=== PATIENT | male | born 1955 | race Caucasian/White ===

== ENCOUNTER → 2016-09-02 | Outpatient (CLI) | payer MEDICAID ==
[2016-09-02 14:54] LABS: CHLORIDE,CL 110 mmol/L (98-110); SODIUM,NA 141 mmol/L (136-146)
== END ==
LOC: MW.LAB 14:04
PROVIDERS: ATTEND Family Medicine
DX: K70.30 Alcoholic cirrhosis of liver without ascites (principal); I10 Essential (primary) hypertension
CPT/HCPCS: 36415; 80053; 82140; 85025

== ENCOUNTER → 2016-09-16 | Outpatient (CLI) | payer MEDICAID | LOC: MW.LAB 14:11 | PROVIDERS: ATTEND Family Medicine | DX: K70.30 Alcoholic cirrhosis of liver without ascites (principal) | CPT/HCPCS: 36415; 82140 ==

== ENCOUNTER → 2016-09-30 | Outpatient (CLI) | payer MEDICAID | LOC: MW.LAB 14:02 | PROVIDERS: ATTEND Family Medicine | DX: K70.30 Alcoholic cirrhosis of liver without ascites (principal) | CPT/HCPCS: 36415; 82140 ==

== ENCOUNTER → 2016-10-14 | Outpatient (CLI) | payer MEDICAID | END | disposition home or self-care (01) | LOC: MW.LAB 14:26 | PROVIDERS: ATTEND Family Medicine | DX: K70.30 Alcoholic cirrhosis of liver without ascites (principal) | CPT/HCPCS: 36415; 82140 ==

== ENCOUNTER → 2016-10-28 | Outpatient (CLI) | payer MEDICAID | END | disposition home or self-care (01) | LOC: MW.LAB 14:12 | PROVIDERS: ATTEND Family Medicine | DX: K70.30 Alcoholic cirrhosis of liver without ascites (principal) | CPT/HCPCS: 36415; 82140 ==

== ENCOUNTER → 2016-11-25 | Outpatient (CLI) | payer MEDICAID | LOC: MW.LAB 14:26 | PROVIDERS: ATTEND Family Medicine | DX: K70.30 Alcoholic cirrhosis of liver without ascites (principal) | CPT/HCPCS: 36415; 82140 ==

== ENCOUNTER 2019-03-19 16:43 | Inpatient (IN) | payer MEDICAID, MEDICARE ==
[2019-03-19] MEDS ORDERED: Sodium Chloride 0.9% 1,000 ML IV ONE (16:46)
[2019-03-19] MEDS ORDERED: MVI, Adult with Vitamin K 10 ML, Thiamine 100 MG, Folic Acid 1 MG in Sodium Chloride 0.... IV ONE ×4 (16:49)
--- NOTE | 2019-03-19 17:04 | EDM.PDOC ---
ED HPI GENERAL MEDICAL PROBLEM - General Stated Complaint: MED CLEAR Time Seen by Provider: 03/19/19 16:50 Source of Information: Reports: Patient, Police History Limitations: Reports: No Limitations - History of Present Illness INITIAL COMMENTS - FREE TEXT/NARRATIVE: HISTORY AND PHYSICAL: History of present illness: Patient is a 64-year-old male who presents to the ER for medical screening examinationclearance. Patient was pulled over and charged with a DUI, patient himself has no complaints or concerns. law enforcement has no other concerns other then having him released for medical screening examination. There was no injury or trauma involved with him being pulled over. patient is sitting in a wheel chair hunched over and answers questions with one word replies. he appears to be intoxicated as he is slurring his speech and being uncooperative with obtaining a health history. Review of systems: As per history of present illness and below otherwise all systems reviewed and negative. Past medical history: As per history of present illness and as reviewed below otherwise noncontributory. Surgical history: As per history of present illness and as reviewed below otherwise noncontributory. Social history: See social history for further information Family history: As per history of present illness and as reviewed below otherwise noncontributory. Physical exam: General: Well-developed and well nourished 64-year-old male. Unable to assess mentation due to alcohol use. appears unkempt, incontinent of urine. vital signs have been reviewed by me. HEENT: Atraumatic, normocephalic, pupils equal and reactive bilaterally, negative for conjunctival pallor, bilateral scleral icterus, mucous membranes moist, trachea midline. No drooling or trismus noted. No meningeal signs. No hot potato voice noted. Lungs: Clear to auscultation, breath sounds equal bilaterally, chest nontender. Heart: Irregular rate and rhythm; pulse of 230's. Abdomen: Soft, nondistended, nontender. Negative for masses. Negative for costovertebral tenderness. Pelvis: Stable nontender. Skin: Jaundice. Intact, warm, dry. No lesions or rashes noted. Extremities: Atraumatic, moves all extremities per self without difficulty or deficits, negative for cords or calf pain. Neurovascular unremarkable. Neuro: Alert and arousable. Cranial nerves II through XII unremarkable. Cerebellum unremarkable. Motor and sensory unremarkable throughout. Exam nonfocal. Notes: I was able to review a note from [facility] of 2014. It appears that he had some health issues which required him to be in a half-way for rehab I am unable to get a health history from the patient or previous health records. Unsure if he takes any medications at this time. After fluids have been initiated and diltiazem was given he does appear more alert. he is now cooperative with answering questions. He states he had been admitted to [facility] due to chronic back pain which required surgery and rehabilitation. He states he is a daily drinker but only drinks one to 2 beers a day. It is noted that his skin is jaundice and he has yellow sclera. he denies any history of hepatitis or systemic health conditions. States he does not take any medications or doctor with a primary care provider. I did inform the patient was likely she'll need to be admitted for further observation, he is agreeable. Blunt force man is at bedside and was made aware of this. Patient's lab values have returned and he is legally intoxicated at 236. TSH is 6.03. Chest x-ray shows no acute findings. Repeat Diltiazem being given for pulse of 115-130's; BP stable. Dr Mendez was consulted on this patient, will come and evaluate this patient for admission. Diagnostics: CBC, CMP, UA, EKG, CXR, INR, Chest X-ray, Drug Screen Therapeutics: IV fluids, Diltiazem, Banana Bag Impression: Hypothyroidism Alcohol intoxication Atrial fibrillation with RVR Plan: Observation admission Definitive disposition and diagnosis as appropriate pending reevaluation and review of above. Bilateral Scrotum Pain Score (Numeric/FACES): 5 - Related Data Allergies Allergy/AdvReac Type Severity Reaction Status Date / Time No Known Allergies Allergy Verified 03/19/19 21:49 Home Meds: Home Meds . [Unable to Verify Home Med List] 03/19/19 [History] ED ROS GENERAL - Review of Systems Review Of Systems: ROS reveals no pertinent complaints other than HPI. ED EXAM, GENERAL - Physical Exam Exam: See Below (See dictation) Course - Vital Signs Last Recorded V/S: Last Vital Signs Temp 98.4 F 03/20/19 09:00 Pulse 70 03/20/19 09:23 Resp 20 03/20/19 10:00 BP 110/66 03/20/19 10:00 Pulse Ox 94 L 03/20/19 10:00 - Orders/Labs/Meds Orders: Active Orders 24 hr Category Date Time Status CULTURE URINE [RM] Stat Lab 03/19/19 18:59 Received Medication Orders Diltiazem HCl (Cardizem Cd) 240 mg PO DAILY [facility] Last Admin: 03/20/19 09:23 Dose: 240 mg Admin: 03/19/19 20:27 Dose: 240 mg Folic Acid (Folic Acid) 1 mg PO BEDTIME JAIME Last Admin: 03/19/19 20:28 Dose: 1 mg Sodium Chloride (Normal Saline) 1,000 mls @ 150 mls/hr IV ASDIRECTED JAIME Last Admin: 03/20/19 09:29 Dose: 150 mls/hr Infusion: 03/20/19 09:29 Dose: 150 mls/hr Admin: 03/20/19 03:04 Dose: 150 mls/hr Infusion: 03/20/19 03:00 Dose: 150 mls/hr Admin: 03/19/19 20:19 Dose: 150 mls/hr Lorazepam (Ativan) 0 mg IVPUSH Q4H PRN; Protocol PRN Reason: Withdrawal Symptoms Lorazepam (Ativan) 0 mg PO Q4H PRN; Protocol PRN Reason: Withdrawal Symptoms Pantoprazole Sodium (Protonix) 40 mg PO BEDTIME JAIME Last Admin: 03/19/19 20:28 Dose: 40 mg Thiamine HCl (Vitamin B-1) 100 mg PO BEDTIME JAIME Last Admin: 03/19/19 20:27 Dose: 100 mg Labs: Laboratory Tests 03/19/19 03/19/19 03/19/19 Range/Units 16:50 16:50 16:50 WBC 6.56 (4.0-11.0) K/uL RBC 4.13 L (4.50-5.90) M/uL Hgb 14.8 (13.0-17.0) g/dL Hct 41.2 (38.0-50.0) % MCV 99.8 H (80.0-98.0) fL MCH 35.8 H (27.0-32.0) pg MCHC 35.9 (31.0-37.0) g/dL RDW Std Deviation 64.8 H (28.0-62.0) fl RDW Coeff of Miriam 18 H (11.0-15.0) % Plt Count 84 L (150-400) K/uL Neut % (Auto) 58.0 (48.0-80.0) % Lymph % (Auto) 31.4 (16.0-40.0) % [place] % (Auto) 9.1 (0.0-15.0) % Eos % (Auto) 0.3 (0.0-7.0) % Baso % (Auto) 1.2 (0.0-1.5) % Neut # (Auto) 3.8 (1.4-5.7) K/uL Lymph # (Auto) 2.1 (0.6-2.4) K/uL [place] # (Auto) 0.6 (0.0-0.8) K/uL Eos # (Auto) 0.0 (0.0-0.7) K/uL Baso # (Auto) 0.1 (0.0-0.1) K/uL Nucleated RBC % 1.3 /100WBC Nucleated RBCs # 0 K/uL INR 1.37 Sodium 140 (136-148) mmol/L Potassium 3.5 (3.5-5.1) mmol/L Chloride 106 (98-107) mmol/L Carbon Dioxide 16.9 L (21.0-32.0) mmol/L BUN 11 (7.0-18.0) mg/dL Creatinine 1.2 (0.8-1.3) mg/dL Est Cr Clr Drug Dosing 63.37 mL/min Estimated GFR (MDRD) > 60.0 ml/min Glucose 147 H (74-106) mg/dL Calcium 9.0 (8.5-10.1) mg/dL Phosphorus (2.6-4.7) mg/dL Magnesium (1.8-2.4) mg/dL Total Bilirubin 6.1 H (0.2-1.0) mg/dL Direct Bilirubin (0.0-0.5) mg/dL Indirect Bilirubin AST 132 H (15-37) IU/L ALT 26 (14-63) IU/L Alkaline Phosphatase 135 H (46-116) U/L Troponin I (0.000-0.056) ng/mL Total Protein 10.3 H (6.4-8.2) g/dL Albumin 2.0 L (3.4-5.0) g/dL Globulin 8.3 H (2.6-4.0) g/dL Albumin/Globulin Ratio 0.2 L (0.9-1.6) Lipase 345 (73-393) U/L TSH 3rd Generation 6.03 H (0.36-3.74) uIU/mL Acetaminophen ug/mL Ethyl Alcohol 236 mg/dL 03/19/19 03/19/19 Range/Units 16:50 16:50 WBC (4.0-11.0) K/uL RBC (4.50-5.90) M/uL Hgb (13.0-17.0) g/dL Hct (38.0-50.0) % MCV (80.0-98.0) fL MCH (27.0-32.0) pg MCHC (31.0-37.0) g/dL RDW Std Deviation (28.0-62.0) fl RDW Coeff of Miriam (11.0-15.0) % Plt Count (150-400) K/uL Neut % (Auto) (48.0-80.0) % Lymph % (Auto) (16.0-40.0) % [place] % (Auto) (0.0-15.0) % Eos % (Auto) (0.0-7.0) % Baso % (Auto) (0.0-1.5) % Neut # (Auto) (1.4-5.7) K/uL Lymph # (Auto) (0.6-2.4) K/uL [place] # (Auto) (0.0-0.8) K/uL Eos # (Auto) (0.0-0.7) K/uL Baso # (Auto) (0.0-0.1) K/uL Nucleated RBC % /100WBC Nucleated RBCs # K/uL INR Sodium (136-148) mmol/L Potassium (3.5-5.1) mmol/L Chloride (98-107) mmol/L Carbon Dioxide (21.0-32.0) mmol/L BUN (7.0-18.0) mg/dL Creatinine (0.8-1.3) mg/dL Est Cr Clr Drug Dosing mL/min Estimated GFR (MDRD) ml/min Glucose (74-106) mg/dL Calcium (8.5-10.1) mg/dL Phosphorus 2.7 (2.6-4.7) mg/dL Magnesium 1.1 L (1.8-2.4) mg/dL Total Bilirubin 6.0 H (0.2-1.0) mg/dL Direct Bilirubin 3.70 H (0.0-0.5) mg/dL Indirect Bilirubin 2.30 AST (15-37) IU/L ALT (14-63) IU/L Alkaline Phosphatase (46-116) U/L Troponin I < 0.050 (0.000-0.056) ng/mL Total Protein (6.4-8.2) g/dL Albumin (3.4-5.0) g/dL Globulin (2.6-4.0) g/dL Albumin/Globulin Ratio (0.9-1.6) Lipase (73-393) U/L TSH 3rd Generation (0.36-3.74) uIU/mL Acetaminophen <2.0 ug/mL Ethyl Alcohol mg/dL Meds: Medications Generic Name Dose Route Start Last Admin Trade Name Freq PRN Reason Stop Dose Admin Diltiazem HCl 240 mg 03/19/19 19:00 03/20/19 09:23 Cardizem Cd PO 240 mg DAILY JAIME Administration Folic Acid 1 mg 03/19/19 21:00 03/19/19 20:28 Folic Acid PO 1 mg BEDTIME JAIME Administration Sodium Chloride 1,000 mls @ 150 mls/hr 03/19/19 19:00 03/20/19 09:29 Normal Saline IV 150 mls/hr ASDIRECTED JAIME Administration Lorazepam 0 mg 03/19/19 18:47 Ativan IVPUSH Q4H PRN Withdrawal Symptoms Protocol Lorazepam 0 mg 03/19/19 18:52 Ativan PO Q4H PRN Withdrawal Symptoms Protocol Pantoprazole Sodium 40 mg 03/19/19 21:00 03/19/19 20:28 Protonix PO 40 mg BEDTIME JAIME Administration Thiamine HCl 100 mg 03/19/19 21:00 03/19/19 20:27 Vitamin B-1 PO 100 mg BEDTIME JAIME Administration Discontinued Medications Generic Name Dose Route Start Last Admin Trade Name Freq PRN Reason Stop Dose Admin Diltiazem HCl 20 mg 03/19/19 17:17 03/19/19 17:30 Diltiazem IVPUSH 03/19/19 17:18 20 mg ONETIME ONE Administration Diltiazem HCl 20 mg 03/19/19 17:42 03/19/19 18:04 Diltiazem IVPUSH 03/19/19 17:43 Not Given ONETIME ONE Diltiazem HCl 10 mg 03/19/19 18:04 03/19/19 18:10 Diltiazem IVPUSH 03/19/19 18:05 10 mg ONETIME ONE Administration Sodium Chloride 1,000 mls @ 999 mls/hr 03/19/19 16:46 03/19/19 17:03 Normal Saline IV 03/19/19 17:46 999 mls/hr .Bolus ONE Administration Multivitamins/Minerals 10 ml/ 1,011.2 mls @ 999 mls/hr 03/19/19 16:49 17:12 Thiamine HCl 100 mg/ Folic IV 03/19/19 17:49 999 mls/hr Acid 1 mg/ Sodium Chloride ONETIME ONE Administration Magnesium Sulfate 4 gm/ Premix 100 mls @ 25 mls/hr 03/19/19 19:17 03/19/19 20 :23 IV 03/19/19 23:16 25 mls/hr ONETIME ONE Administration Magnesium Sulfate 2 gm/ Premix 50 mls @ 25 mls/hr 03/20/19 08:38 03/20/19 09: 16 IV 03/20/19 10:37 25 mls/hr ONETIME ONE Administration Iopamidol 50 ml 03/19/19 19:32 03/19/19 20:27 Isovue Multipack-370 (76%) IVPUSH 03/19/19 19:33 Not Given ONETIME STA Pneumococcal Polyvalent Vaccine 0.5 ml 03/20/19 11:00 03/20/19 11:06 Pneumovax 23 IM 03/20/19 11:01 0.5 ml .ONCE ONE Administration Pneumococcal Polyvalent Vaccine Confirm 03/20/19 10:59 03/20/19 11:04 Pneumovax 23 Administered 03/20/19 11:00 Not Given Dose 0.5 ml .ROUTE .STK-MED ONE Potassium Chloride 40 meq 03/20/19 08:39 03/20/19 09:22 Klor-Con M20 PO 03/20/19 08:40 40 meq ONETIME ONE Administration Potassium Chloride 40 meq 03/20/19 12:00 03/20/19 12:04 Klor-Con M20 PO 03/20/19 12:01 40 meq ONETIME ONE Administration Departure - Departure Time of Disposition: 18:00 Disposition: Admitted As Inpatient 65 Clinical Impression: Atrial fibrillation with rapid ventricular response, Alcohol abuse Hypothyroidism Qualifiers: Hypothyroidism type: unspecified Qualified Code(s): E03.9 - Hypothyroidism, unspecified - Discharge Information - My Orders Last 24 Hours: My Active Orders 03/19/19 18:59 CULTURE URINE [RM] Stat - Assessment/Plan Last 24 Hours: My Active Orders 03/19/19 18:59 CULTURE URINE [RM] Stat
[2019-03-19] MEDS ORDERED: Diltiazem 25 MG/5 ML SDV IVPUSH ONE ×3 (17:17→18:04)
[2019-03-19 17:33] LABS: BLOOD UREA NITROGEN,BUN 11 mg/dL (7.0-18.0); CARBON DIOXIDE,CO2 16.9 mmol/L (21.0-32.0); CHLORIDE,CL 106 mmol/L (98-107); GLUCOSE RANDOM 147 mg/dL (74-106); LIPASE 345 U/L (73-393); POTASSIUM,K 3.5 mmol/L (3.5-5.1); SODIUM,NA 140 mmol/L (136-148)
--- NOTE | 2019-03-19 17:40 | CR ---
Indication: Chest pain. Technique: A single AP portable view of the chest was obtained. Comparison: None Findings: The heart is normal in size. The lungs are clear. No infiltrate, pleural effusion, or pneumothorax is identified. Defibrillator pads are identified overlying the chest. Impression: No acute cardiopulmonary process Dictated by Alfreda Whitt MD @ Mar 19 2019 5:39PM Signed by Dr. Alfreda Whitt @ Mar 19 2019 5:40PM
--- NOTE | 2019-03-19 18:36 | PCM.HP.2 ---
H&P History of Present Illness - General Date of Service: 03/19/19 Admit Problem/Dx: Admission Diagnosis/Problem Admission Diagnosis/Problem Atrial fibrillation with rapid ventricular response - History of Present Illness Initial Comments - Free Text/Narative: The patient is a 64 year old male who was brought in by police for medical clearance after being arrested on suspicion of DUI. In the ER he was found to be in Afib with RVR with a HR of 236. Patient denies any fever/chills, chest pain, heart palpitations, shortness of breath, abdominal pain, nausea/vomiting, diarrhea or black/bloody stools. Patient denies hx of Afib or other cardiac issues. Patient does drink daily. He drinks 3-4 beers and 1/2 pint of whiskey. Last drink was this morning, unsure what time. Patient had been sober for 5 years because he states "my body just couldn't handle it anymore". He started drinking again daily 6-7 months ago. He denies hx of withdrawal symptoms or withdrawal seizure. He denies history of hepatitis, cirrhosis, or gallbladder disease. In the ER workup showed no white count or anemia but was thrombocytopenic with platelet level of 84, an INR within normal limits. He did have an elevated bilirubin of 6.1 and elevated AST of 132. ALT was within normal limits. Lipase was 345. TSH was elevated at 6. Alcohol level was 236. UDS and UA were pending. CXR showed no acute cardiopulmonary process. EKG showed Afib with RVR with rate of 184. In the ER he was given 2 doses of 20 mg IV diltiazem and one dose of 10 mg IV diltiazem. He was also given a banana bag and 1 L bolus of NS. - Related Data Allergies/Adverse Reactions: Allergies Allergy/AdvReac Type Severity Reaction Status Date / Time Unable to Assess Allergy Unverified 03/19/19 17:03 Home Medications: Home Meds . [Unable to Verify Home Med List] 03/19/19 [History] Past Medical History - Past Health History Medical/Surgical History: Denies Medical/Surgical History Cardiovascular History: Reports: None Respiratory History: Reports: None Gastrointestinal History: Reports: None Genitourinary History: Reports: None Musculoskeletal History: Reports: Back Pain, Chronic, Fracture Neurological History: Reports: None Psychiatric History: Reports: None Endocrine/Metabolic History: Reports: None - Infectious Disease History Infectious Disease History: Reports: None - Past Surgical History Other GI Surgeries/Procedures: splenectomy Other Neurological Surgeries/Procedures: Unable to obtain Other Musculoskeletal Surgeries/Procedures:: back surgery Social & Family History - Family History Family Medical History: Noncontributory - Tobacco Use Smoking Status *Q: Former Smoker - Alcohol Use Alcohol Use History: Yes - Recreational Drug Use Recreational Drug Use: No H&P Review of Systems - Review of Systems: Review Of Systems: See Below General: Reports: No Symptoms HEENT: Reports: No Symptoms Pulmonary: Reports: No Symptoms Cardiovascular: Reports: No Symptoms Gastrointestinal: Reports: No Symptoms Genitourinary: Reports: No Symptoms Musculoskeletal: Reports: No Symptoms Skin: Reports: No Symptoms Psychiatric: Reports: No Symptoms Neurological: Reports: No Symptoms Hematologic/Lymphatic: Reports: No Symptoms Immunologic: Reports: No Symptoms Exam - Exam Exam: See Below - Vital Signs Vital Signs: Last Vital Signs Temp 98.9 F 03/19/19 17:03 Pulse 89 03/19/19 18:10 Resp 18 03/19/19 18:10 BP 127/80 03/19/19 18:10 Pulse Ox 96 03/19/19 18:10 Weight: 83.915 kg - Exam General: Alert, Oriented, Cooperative HEENT: Conjunctiva Clear, EOMI, Mucosa Moist & [place], Posterior Pharynx Clear, Pupils Equal, Pupils Reactive Neck: Supple, Trachea Midline Lungs: Clear to Auscultation, Normal Respiratory Effort Cardiovascular: Irregular Rhythm, Tachycardia GI/Abdominal Exam: Normal Bowel Sounds, Soft, Non-Tender, Hepatomegaly. No: Guarding, Rigid, Rebound Extremities: No Pedal Edema Skin: Other (Jaundice) Neuro Extensive - Mental Status: Alert Psychiatric: Alert, Normal Affect, Normal Mood - Patient Data Lab Results Last 24 hrs: Laboratory Results - last 24 hr 03/19/19 03/19/19 03/19/19 Range/Units 16:50 16:50 16:50 WBC 6.56 (4.0-11.0) K/uL RBC 4.13 L (4.50-5.90) M/uL Hgb 14.8 (13.0-17.0) g/dL Hct 41.2 (38.0-50.0) % MCV 99.8 H (80.0-98.0) fL MCH 35.8 H (27.0-32.0) pg MCHC 35.9 (31.0-37.0) g/dL RDW Std Deviation 64.8 H (28.0-62.0) fl RDW Coeff of Miriam 18 H (11.0-15.0) % Plt Count 84 L (150-400) K/uL Neut % (Auto) 58.0 (48.0-80.0) % Lymph % (Auto) 31.4 (16.0-40.0) % [place] % (Auto) 9.1 (0.0-15.0) % Eos % (Auto) 0.3 (0.0-7.0) % Baso % (Auto) 1.2 (0.0-1.5) % Neut # (Auto) 3.8 (1.4-5.7) K/uL Lymph # (Auto) 2.1 (0.6-2.4) K/uL [place] # (Auto) 0.6 (0.0-0.8) K/uL Eos # (Auto) 0.0 (0.0-0.7) K/uL Baso # (Auto) 0.1 (0.0-0.1) K/uL Nucleated RBC % 1.3 /100WBC Nucleated RBCs # 0 K/uL INR 1.37 Sodium 140 (136-148) mmol/L Potassium 3.5 (3.5-5.1) mmol/L Chloride 106 (98-107) mmol/L Carbon Dioxide 16.9 L (21.0-32.0) mmol/L BUN 11 (7.0-18.0) mg/dL Creatinine 1.2 (0.8-1.3) mg/dL Est Cr Clr Drug Dosing 63.37 mL/min Estimated GFR (MDRD) > 60.0 ml/min Glucose 147 H (74-106) mg/dL Calcium 9.0 (8.5-10.1) mg/dL Total Bilirubin 6.1 H (0.2-1.0) mg/dL AST 132 H (15-37) IU/L ALT 26 (14-63) IU/L Alkaline Phosphatase 135 H (46-116) U/L Total Protein 10.3 H (6.4-8.2) g/dL Albumin 2.0 L (3.4-5.0) g/dL Globulin 8.3 H (2.6-4.0) g/dL Albumin/Globulin Ratio 0.2 L (0.9-1.6) Lipase 345 (73-393) U/L TSH 3rd Generation 6.03 H (0.36-3.74) uIU/mL Ethyl Alcohol 236 mg/dL Result Diagrams: 03/19/19 16:50 03/19/19 16:50 Problem List Initiated/Reviewed/Updated: Yes Orders Last 24hrs: Active Orders 24 hr Category Date Time Status Patient Status [ADT] Stat ADT 03/19/19 18:09 Active EKG Documentation Completion [RC] STAT Care 03/19/19 16:49 Active EKG Documentation Completion [RC] STAT Care 03/19/19 17:40 Active DRUG SCREEN, URINE [URCHEM] Stat Lab 03/19/19 16:48 Ordered UA RFX MELLISSA AND CULT IF INDIC [URIN] Stat Lab 03/19/19 16:48 Ordered Assessment/Plan Comment:: 1. Admit for inpatient 2. Code status- full 3. Vitals per routine 4. I/Os per routine 5. Diet- regular 6. DVT prophylaxis with scds 7. Afib with RVR- did speak with finance clerk who recommended oral Diltiazem 240 mg ER and further workup which will include CTA to rule out PE, echo, and troponins trended. Will monitor on telemetry. 8. Elevated LFTs- will obtain hepatitis panel, tylenol level, direct/indirect bilirubin, and US RUQ 9. Alcohol intoxication- CIWA/Ativan protocol, start thiamine and folic acid. Start on IVF. Monitor magnesium and phosphorus daily 10. Thrombocytopenia- will obtain Hemoccult
[2019-03-19] MEDS ORDERED: LORazepam Conc Solution 2 MG/ML 30 ML Bottle PO PRN (18:52)
[2019-03-19] MEDS ORDERED: Magnesium Sulfate/Water 4 GM in Premix Bag 1 BAG IV ONE (19:17)
[2019-03-19] MEDS ORDERED: Iopamidol 755 MG/ML 500 ML Multipack Bottle IVPUSH STA (19:32)
[2019-03-19] MEDS: Sodium Chloride 0.9% 1,000 ML IV SCH (20:19)
[2019-03-19] MEDS: Diltiazem 120 MG Cap.CD PO SCH (20:27)
[2019-03-19] MEDS: Thiamine 100 MG Tab PO SCH (20:27)
[2019-03-19] MEDS: Pantoprazole 40 MG Tab.CR PO SCH (20:28)
[2019-03-19] MEDS: Folic Acid 1 MG Tab PO SCH (20:28)
--- NOTE | 2019-03-19 20:34 | CT ---
INDICATION: New onset atrial fibrillation COMPARISON: None available TECHNIQUE: CT examination of the chest was performed with the uneventful intravenous administration of 50 cc of Isovue 370 while 1 and 3 mm thick axial sections were obtained through the pulmonary arteries. Please note that all CT scans at this facility use dose modulation, iterative reconstruction, and/or weight-based dosing when appropriate to reduce radiation dose to as low as reasonably achievable. FINDINGS: : There is no sign of pulmonary embolism, with normal enhancement and branching of the pulmonary arteries. There is an 8 millimeter nodule in the central right lung base adjacent to the hemidiaphragm on axial image 74 series 702. The appearance is nonspecific, but malignancy cannot be excluded. This can be followed using Fleischner society criteria. There is mild linear atelectasis in the posterior lung bases bilaterally. There is no sign of mediastinal or hilar mass or adenopathy. The heart and great vessels are normal in appearance. There is no sign of supraclavicular or axillary mass or adenopathy. The visualized superior liver has nodular margins consistent with cirrhosis. There is prominent serpiginous soft tissue density in the inferior mediastinum around the GE junction, consistent with prominent esophageal varices. The spleen is absent. Note is made of a splenule in the left upper quadrant lateral to the liver. There is no sign of ascites in the upper abdomen. The pancreas, kidneys, and adrenals are normal in appearance. Incidental note is made of a hemangioma in the T7 vertebral body. The osseous structures are otherwise normal in appearance for the patient`s age. IMPRESSION: No sign of pulmonary embolism. Nodular appearance of the liver suggesting cirrhosis. Prominent soft tissue fullness with serpiginous vessels in the inferior mediastinum at the GE junction consistent with prominent esophageal varices. 8 millimeter noncalcified pulmonary nodule in the right lung base. This can be followed using Fleischner society criteria. FLEISCHNER SOCIETY GUIDELINES - SOLID NODULES: SINGLE LOW RISK - nodule less than 6 mm: No routine follow-up. - nodule 6-8 mm: CT at 6-12 months, then consider CT at 18-24 months. - nodule greater than 8 mm: Consider CT at 3 months, PET/CT or tissue sampling. SINGLE HIGH RISK - nodule less than 6 mm: Optional CT at 12 months. - nodule 6-8 mm: CT at 6-12 months, then CT at 18-24 months. - nodule greater than 8 mm: Consider CT at 3 months, PET/CT or tissue sampling. MULTIPLE LOW RISK - nodule less than 6 mm: No routine follow-up. - nodule 6-8 mm: CT at 3-6 months, then consider CT at 18-24 months. - nodule greater than 8 mm: CT at 3-6 months, then consider CT at 18-24 months. MULTIPLE HIGH RISK - nodule less than 6 mm: Optional CT at 12 months. - nodule 6-8 mm: CT at 3-6 months, then at 18-24 months. - nodule greater than 8 mm: CT at 3-6 months, then at 18-24 months. Please note that all CT scans at this facility use dose modulation, iterative reconstruction, and/or weight-based dosing when appropriate to reduce radiation dose to as low as reasonably achievable. Dictated by Guerrero Mueller MD @ Mar 19 2019 8:24PM Signed by Dr. Guerrero Mueller @ Mar 19 2019 8:32PM
--- NOTE | 2019-03-19 21:21 | PN ---
THC Physician - Brief Progress [id number]/16/2019 21:13[facility] Marc Cano, KIN - ROBB (ALEXA) - DAVE PAINTINGDate of Service 03/19/2019 21:13HPI/Even ts of Note eICU Brief Admission [id number] M admitted with etoh intoxication and afib RVROn CameraResti ng appears comfortable HR 87 RR 20 Sats 93% RA BP 130/84Etoh 263AST/ALT 132/26Tbili 3.2Plat 84Recomme ndationsFluidsThiamine and folateReplete electrolytesCardizem for rate comtrolWatch for withdrawal- C IWAWill need further workup for etoh liver diseaseSCDs for dvt prophInterventions Major-Arrhythmia - evaluation and management, Delirium, psychosis, severe agitation - evaluation and managementIntermedi ate-Communication with other healthcare providers and/or family
[2019-03-20] MEDS: Sodium Chloride 0.9% 1,000 ML IV SCH ×2 (03:04→09:29)
[2019-03-20 07:11] LABS: BLOOD UREA NITROGEN,BUN 8 mg/dL (7.0-18.0); CARBON DIOXIDE,CO2 22.4 mmol/L (21.0-32.0); CHLORIDE,CL 108 mmol/L (98-107); GLUCOSE RANDOM 106 mg/dL (74-106); POTASSIUM,K 3.2 mmol/L (3.5-5.1); SODIUM,NA 140 mmol/L (136-148)
--- NOTE | 2019-03-20 07:48 | PCM.PN ---
- General Info Date of Service: 03/20/19 Subjective Update: The patient is a 64 year old male admitted for alcohol withdrawal, Afib, and elevated LFTs. Patient is still in Afib but rate controlled in the 70-80s. Patient doesn't feel any different now that his heart is slowed down. Denies chest pain, shortness of breath, abdominal pain. Reports is eating and drinking appropriately. Was placed on oxygen for desatting while sleeping into the 80s. Reports he feels like he can go home. - Review of Systems General: Reports: No Symptoms HEENT: Reports: No Symptoms Pulmonary: Reports: No Symptoms Cardiovascular: Reports: No Symptoms Gastrointestinal: Reports: No Symptoms Genitourinary: Reports: No Symptoms Musculoskeletal: Reports: No Symptoms Skin: Reports: No Symptoms Neurological: Reports: Tremors Psychiatric: Reports: No Symptoms - Patient Data Vitals - Most Recent: Last Vital Signs Temp 98.2 F 03/20/19 04:00 Pulse 83 03/19/19 20:27 Resp 14 03/20/19 07:00 BP 114/75 03/20/19 07:00 Pulse Ox 93 L 03/20/19 07:00 Weight - Most Recent: 83.869 kg I&O - Last 24 Hours: Intake & Output 03/19/19 03/20/19 03/20/19 22:59 06:59 14:59 Intake Total 3193 Output Total 1250 Balance 1943 Lab Results Last 24 Hours: Laboratory Results - last 24 hr 03/19/19 03/19/19 03/19/19 Range/Units 16:50 16:50 16:50 WBC 6.56 (4.0-11.0) K/uL RBC 4.13 L (4.50-5.90) M/uL Hgb 14.8 (13.0-17.0) g/dL Hct 41.2 (38.0-50.0) % MCV 99.8 H (80.0-98.0) fL MCH 35.8 H (27.0-32.0) pg MCHC 35.9 (31.0-37.0) g/dL RDW Std Deviation 64.8 H (28.0-62.0) fl RDW Coeff of Miriam 18 H (11.0-15.0) % Plt Count 84 L (150-400) K/uL Neut % (Auto) 58.0 (48.0-80.0) % Lymph % (Auto) 31.4 (16.0-40.0) % [place] % (Auto) 9.1 (0.0-15.0) % Eos % (Auto) 0.3 (0.0-7.0) % Baso % (Auto) 1.2 (0.0-1.5) % Neut # (Auto) 3.8 (1.4-5.7) K/uL Lymph # (Auto) 2.1 (0.6-2.4) K/uL [place] # (Auto) 0.6 (0.0-0.8) K/uL Eos # (Auto) 0.0 (0.0-0.7) K/uL Baso # (Auto) 0.1 (0.0-0.1) K/uL Add Manual Diff Neutrophils % (Manual) (48.0-80.0) % Band Neutrophils % % Lymphocytes % (Manual) (16.0-40.0) % Monocytes % (Manual) (0.0-15.0) % Basophils % (Manual) (0.0-1.5) % Nucleated RBC % 1.3 /100WBC Absolute Seg Neuts (1.4-5.7) Band Neutrophils # Lymphocytes # (Manual) (0.6-2.4) Monocytes # (Manual) (0.0-0.8) Basophils # (Manual) (0.0-0.1) Nucleated RBCs # 0 K/uL INR 1.37 Lactate (0.20-2.00) mmol/L Sodium 140 (136-148) mmol/L Potassium 3.5 (3.5-5.1) mmol/L Chloride 106 (98-107) mmol/L Carbon Dioxide 16.9 L (21.0-32.0) mmol/L BUN 11 (7.0-18.0) mg/dL Creatinine 1.2 (0.8-1.3) mg/dL Est Cr Clr Drug Dosing 63.37 mL/min Estimated GFR (MDRD) > 60.0 ml/min Glucose 147 H (74-106) mg/dL Calcium 9.0 (8.5-10.1) mg/dL Phosphorus (2.6-4.7) mg/dL Magnesium (1.8-2.4) mg/dL Total Bilirubin 6.1 H (0.2-1.0) mg/dL Direct Bilirubin (0.0-0.5) mg/dL Indirect Bilirubin AST 132 H (15-37) IU/L ALT 26 (14-63) IU/L Alkaline Phosphatase 135 H (46-116) U/L Troponin I (0.000-0.056) ng/mL Total Protein 10.3 H (6.4-8.2) g/dL Albumin 2.0 L (3.4-5.0) g/dL Globulin 8.3 H (2.6-4.0) g/dL Albumin/Globulin Ratio 0.2 L (0.9-1.6) Lipase 345 (73-393) U/L TSH 3rd Generation 6.03 H (0.36-3.74) uIU/mL Urine Color Urine Appearance Urine pH (5.0-8.0) Ur Specific [place] (1.001-1.035) Urine Protein (NEGATIVE) mg/dL Urine Glucose (UA) (NEGATIVE) mg/dL Urine Ketones (NEGATIVE) mg/dL Urine Occult Blood (NEGATIVE) Urine Nitrite (NEGATIVE) Urine Bilirubin (NEGATIVE) Urine Ictotest Urine Urobilinogen (<2.0) EU/dL Ur Leukocyte Esterase (NEGATIVE) Urine RBC (0-2/HPF) Urine WBC (0-5/HPF) Ur Epithelial Cells (NONE-FEW) Urine Bacteria (NEGATIVE) Urine Opiates Screen (NEGATIVE) Ur Oxycodone Screen (NEGATIVE) Urine Methadone Screen (NEGATIVE) Acetaminophen ug/mL Ur Barbiturates Screen (NEGATIVE) Ur Phencyclidine Scrn (NEGATIVE) Ur Amphetamine Screen (NEGATIVE) U Methamphetamines Scrn (NEGATIVE) U Benzodiazepines Scrn (NEGATIVE) U Cocaine Metab Screen (NEGATIVE) U Marijuana (THC) Screen (NEGATIVE) Ethyl Alcohol 236 mg/dL 03/19/19 03/19/19 03/19/19 Range/Units 16:50 16:50 18:59 WBC (4.0-11.0) K/uL RBC (4.50-5.90) M/uL Hgb (13.0-17.0) g/dL Hct (38.0-50.0) % MCV (80.0-98.0) fL MCH (27.0-32.0) pg MCHC (31.0-37.0) g/dL RDW Std Deviation (28.0-62.0) fl RDW Coeff of Miriam (11.0-15.0) % Plt Count (150-400) K/uL Neut % (Auto) (48.0-80.0) % Lymph % (Auto) (16.0-40.0) % [place] % (Auto) (0.0-15.0) % Eos % (Auto) (0.0-7.0) % Baso % (Auto) (0.0-1.5) % Neut # (Auto) (1.4-5.7) K/uL Lymph # (Auto) (0.6-2.4) K/uL [place] # (Auto) (0.0-0.8) K/uL Eos # (Auto) (0.0-0.7) K/uL Baso # (Auto) (0.0-0.1) K/uL Add Manual Diff Neutrophils % (Manual) (48.0-80.0) % Band Neutrophils % % Lymphocytes % (Manual) (16.0-40.0) % Monocytes % (Manual) (0.0-15.0) % Basophils % (Manual) (0.0-1.5) % Nucleated RBC % /100WBC Absolute Seg Neuts (1.4-5.7) Band Neutrophils # Lymphocytes # (Manual) (0.6-2.4) Monocytes # (Manual) (0.0-0.8) Basophils # (Manual) (0.0-0.1) Nucleated RBCs # K/uL INR Lactate (0.20-2.00) mmol/L Sodium (136-148) mmol/L Potassium (3.5-5.1) mmol/L Chloride (98-107) mmol/L Carbon Dioxide (21.0-32.0) mmol/L BUN (7.0-18.0) mg/dL Creatinine (0.8-1.3) mg/dL Est Cr Clr Drug Dosing mL/min Estimated GFR (MDRD) ml/min Glucose (74-106) mg/dL Calcium (8.5-10.1) mg/dL Phosphorus 2.7 (2.6-4.7) mg/dL Magnesium 1.1 L (1.8-2.4) mg/dL Total Bilirubin 6.0 H (0.2-1.0) mg/dL Direct Bilirubin 3.70 H (0.0-0.5) mg/dL Indirect Bilirubin 2.30 AST (15-37) IU/L ALT (14-63) IU/L Alkaline Phosphatase (46-116) U/L Troponin I < 0.050 (0.000-0.056) ng/mL Total Protein (6.4-8.2) g/dL Albumin (3.4-5.0) g/dL Globulin (2.6-4.0) g/dL Albumin/Globulin Ratio (0.9-1.6) Lipase (73-393) U/L TSH 3rd Generation (0.36-3.74) uIU/mL Urine Color YELLOW Urine Appearance CLEAR Urine pH 7.0 (5.0-8.0) Ur Specific [place] 1.010 (1.001-1.035) Urine Protein NEGATIVE (NEGATIVE) mg/dL Urine Glucose (UA) NEGATIVE (NEGATIVE) mg/dL Urine Ketones NEGATIVE (NEGATIVE) mg/dL Urine Occult Blood SMALL H (NEGATIVE) Urine Nitrite NEGATIVE (NEGATIVE) Urine Bilirubin SMALL H (NEGATIVE) Urine Ictotest NEGATIVE Urine Urobilinogen 4.0 H (<2.0) EU/dL Ur Leukocyte Esterase TRACE H (NEGATIVE) Urine RBC 1-2 (0-2/HPF) Urine WBC 1-2 (0-5/HPF) Ur Epithelial Cells RARE (NONE-FEW) Urine Bacteria RARE (NEGATIVE) Urine Opiates Screen (NEGATIVE) Ur Oxycodone Screen (NEGATIVE) Urine Methadone Screen (NEGATIVE) Acetaminophen <2.0 ug/mL Ur Barbiturates Screen (NEGATIVE) Ur Phencyclidine Scrn (NEGATIVE) Ur Amphetamine Screen (NEGATIVE) U Methamphetamines Scrn (NEGATIVE) U Benzodiazepines Scrn (NEGATIVE) U Cocaine Metab Screen (NEGATIVE) U Marijuana (THC) Screen (NEGATIVE) Ethyl Alcohol mg/dL 03/19/19 03/19/19 03/19/19 Range/Units 18:59 19:50 23:00 WBC (4.0-11.0) K/uL RBC (4.50-5.90) M/uL Hgb (13.0-17.0) g/dL Hct (38.0-50.0) % MCV (80.0-98.0) fL MCH (27.0-32.0) pg MCHC (31.0-37.0) g/dL RDW Std Deviation (28.0-62.0) fl RDW Coeff of Miriam (11.0-15.0) % Plt Count (150-400) K/uL Neut % (Auto) (48.0-80.0) % Lymph % (Auto) (16.0-40.0) % [place] % (Auto) (0.0-15.0) % Eos % (Auto) (0.0-7.0) % Baso % (Auto) (0.0-1.5) % Neut # (Auto) (1.4-5.7) K/uL Lymph # (Auto) (0.6-2.4) K/uL [place] # (Auto) (0.0-0.8) K/uL Eos # (Auto) (0.0-0.7) K/uL Baso # (Auto) (0.0-0.1) K/uL Add Manual Diff Neutrophils % (Manual) (48.0-80.0) % Band Neutrophils % % Lymphocytes % (Manual) (16.0-40.0) % Monocytes % (Manual) (0.0-15.0) % Basophils % (Manual) (0.0-1.5) % Nucleated RBC % /100WBC Absolute Seg Neuts (1.4-5.7) Band Neutrophils # Lymphocytes # (Manual) (0.6-2.4) Monocytes # (Manual) (0.0-0.8) Basophils # (Manual) (0.0-0.1) Nucleated RBCs # K/uL INR Lactate 3.2 H (0.20-2.00) mmol/L Sodium (136-148) mmol/L Potassium (3.5-5.1) mmol/L Chloride (98-107) mmol/L Carbon Dioxide (21.0-32.0) mmol/L BUN (7.0-18.0) mg/dL Creatinine (0.8-1.3) mg/dL Est Cr Clr Drug Dosing mL/min Estimated GFR (MDRD) ml/min Glucose (74-106) mg/dL Calcium (8.5-10.1) mg/dL Phosphorus (2.6-4.7) mg/dL Magnesium (1.8-2.4) mg/dL Total Bilirubin (0.2-1.0) mg/dL Direct Bilirubin (0.0-0.5) mg/dL Indirect Bilirubin AST (15-37) IU/L ALT (14-63) IU/L Alkaline Phosphatase (46-116) U/L Troponin I < 0.050 (0.000-0.056) ng/mL Total Protein (6.4-8.2) g/dL Albumin (3.4-5.0) g/dL Globulin (2.6-4.0) g/dL Albumin/Globulin Ratio (0.9-1.6) Lipase (73-393) U/L TSH 3rd Generation (0.36-3.74) uIU/mL Urine Color Urine Appearance Urine pH (5.0-8.0) Ur Specific [place] (1.001-1.035) Urine Protein (NEGATIVE) mg/dL Urine Glucose (UA) (NEGATIVE) mg/dL Urine Ketones (NEGATIVE) mg/dL Urine Occult Blood (NEGATIVE) Urine Nitrite (NEGATIVE) Urine Bilirubin (NEGATIVE) Urine Ictotest Urine Urobilinogen (<2.0) EU/dL Ur Leukocyte Esterase (NEGATIVE) Urine RBC (0-2/HPF) Urine WBC (0-5/HPF) Ur Epithelial Cells (NONE-FEW) Urine Bacteria (NEGATIVE) Urine Opiates Screen NEGATIVE (NEGATIVE) Ur Oxycodone Screen NEGATIVE (NEGATIVE) Urine Methadone Screen NEGATIVE (NEGATIVE) Acetaminophen ug/mL Ur Barbiturates Screen NEGATIVE (NEGATIVE) Ur Phencyclidine Scrn NEGATIVE (NEGATIVE) Ur Amphetamine Screen NEGATIVE (NEGATIVE) U Methamphetamines Scrn NEGATIVE (NEGATIVE) U Benzodiazepines Scrn NEGATIVE (NEGATIVE) U Cocaine Metab Screen NEGATIVE (NEGATIVE) U Marijuana (THC) Screen NEGATIVE (NEGATIVE) Ethyl Alcohol mg/dL 03/20/19 03/20/19 03/20/19 Range/Units 00:22 06:29 06:29 WBC 5.98 (4.0-11.0) K/uL RBC 3.44 L (4.50-5.90) M/uL Hgb 12.3 L (13.0-17.0) g/dL Hct 34.4 L (38.0-50.0) % MCV 100.0 H (80.0-98.0) fL MCH 35.8 H (27.0-32.0) pg MCHC 35.8 (31.0-37.0) g/dL RDW Std Deviation 65.3 H (28.0-62.0) fl RDW Coeff of Miriam 18 H (11.0-15.0) % Plt Count 59 L (150-400) K/uL Neut % (Auto) (48.0-80.0) % Lymph % (Auto) (16.0-40.0) % [place] % (Auto) (0.0-15.0) % Eos % (Auto) (0.0-7.0) % Baso % (Auto) (0.0-1.5) % Neut # (Auto) (1.4-5.7) K/uL Lymph # (Auto) (0.6-2.4) K/uL [place] # (Auto) (0.0-0.8) K/uL Eos # (Auto) (0.0-0.7) K/uL Baso # (Auto) (0.0-0.1) K/uL Add Manual Diff YES Neutrophils % (Manual) 50 (48.0-80.0) % Band Neutrophils % 1 % Lymphocytes % (Manual) 33 (16.0-40.0) % Monocytes % (Manual) 15 (0.0-15.0) % Basophils % (Manual) 1 (0.0-1.5) % Nucleated RBC % 0.0 /100WBC Absolute Seg Neuts 3.0 (1.4-5.7) Band Neutrophils # 0.1 Lymphocytes # (Manual) 2.0 (0.6-2.4) Monocytes # (Manual) 0.9 H (0.0-0.8) Basophils # (Manual) 0.1 (0.0-0.1) Nucleated RBCs # 0 K/uL INR Lactate 2.1 H (0.20-2.00) mmol/L Sodium 140 (136-148) mmol/L Potassium 3.2 L (3.5-5.1) mmol/L Chloride 108 H (98-107) mmol/L Carbon Dioxide 22.4 (21.0-32.0) mmol/L BUN 8 (7.0-18.0) mg/dL Creatinine 0.9 (0.8-1.3) mg/dL Est Cr Clr Drug Dosing 84.49 mL/min Estimated GFR (MDRD) > 60.0 ml/min Glucose 106 (74-106) mg/dL Calcium 7.6 L (8.5-10.1) mg/dL Phosphorus 2.7 (2.6-4.7) mg/dL Magnesium 1.6 L (1.8-2.4) mg/dL Total Bilirubin 5.8 H (0.2-1.0) mg/dL Direct Bilirubin (0.0-0.5) mg/dL Indirect Bilirubin AST 113 H (15-37) IU/L ALT 22 (14-63) IU/L Alkaline Phosphatase 96 (46-116) U/L Troponin I < 0.050 (0.000-0.056) ng/mL Total Protein 8.1 (6.4-8.2) g/dL Albumin 1.5 L (3.4-5.0) g/dL Globulin 6.6 H (2.6-4.0) g/dL Albumin/Globulin Ratio 0.2 L (0.9-1.6) Lipase (73-393) U/L TSH 3rd Generation (0.36-3.74) uIU/mL Urine Color Urine Appearance Urine pH (5.0-8.0) Ur Specific [place] (1.001-1.035) Urine Protein (NEGATIVE) mg/dL Urine Glucose (UA) (NEGATIVE) mg/dL Urine Ketones (NEGATIVE) mg/dL Urine Occult Blood (NEGATIVE) Urine Nitrite (NEGATIVE) Urine Bilirubin (NEGATIVE) Urine Ictotest Urine Urobilinogen (<2.0) EU/dL Ur Leukocyte Esterase (NEGATIVE) Urine RBC (0-2/HPF) Urine WBC (0-5/HPF) Ur Epithelial Cells (NONE-FEW) Urine Bacteria (NEGATIVE) Urine Opiates Screen (NEGATIVE) Ur Oxycodone Screen (NEGATIVE) Urine Methadone Screen (NEGATIVE) Acetaminophen ug/mL Ur Barbiturates Screen (NEGATIVE) Ur Phencyclidine Scrn (NEGATIVE) Ur Amphetamine Screen (NEGATIVE) U Methamphetamines Scrn (NEGATIVE) U Benzodiazepines Scrn (NEGATIVE) U Cocaine Metab Screen (NEGATIVE) U Marijuana (THC) Screen (NEGATIVE) Ethyl Alcohol mg/dL 09/17/19 Range/Units 06:29 WBC (4.0-11.0) K/uL RBC (4.50-5.90) M/uL Hgb (13.0-17.0) g/dL Hct (38.0-50.0) % MCV (80.0-98.0) fL MCH (27.0-32.0) pg MCHC (31.0-37.0) g/dL RDW Std Deviation (28.0-62.0) fl RDW Coeff of Miriam (11.0-15.0) % Plt Count (150-400) K/uL Neut % (Auto) (48.0-80.0) % Lymph % (Auto) (16.0-40.0) % [place] % (Auto) (0.0-15.0) % Eos % (Auto) (0.0-7.0) % Baso % (Auto) (0.0-1.5) % Neut # (Auto) (1.4-5.7) K/uL Lymph # (Auto) (0.6-2.4) K/uL [place] # (Auto) (0.0-0.8) K/uL Eos # (Auto) (0.0-0.7) K/uL Baso # (Auto) (0.0-0.1) K/uL Add Manual Diff Neutrophils % (Manual) (48.0-80.0) % Band Neutrophils % % Lymphocytes % (Manual) (16.0-40.0) % Monocytes % (Manual) (0.0-15.0) % Basophils % (Manual) (0.0-1.5) % Nucleated RBC % /100WBC Absolute Seg Neuts (1.4-5.7) Band Neutrophils # Lymphocytes # (Manual) (0.6-2.4) Monocytes # (Manual) (0.0-0.8) Basophils # (Manual) (0.0-0.1) Nucleated RBCs # K/uL INR Lactate 1.8 (0.20-2.00) mmol/L Sodium (136-148) mmol/L Potassium (3.5-5.1) mmol/L Chloride (98-107) mmol/L Carbon Dioxide (21.0-32.0) mmol/L BUN (7.0-18.0) mg/dL Creatinine (0.8-1.3) mg/dL Est Cr Clr Drug Dosing mL/min Estimated GFR (MDRD) ml/min Glucose (74-106) mg/dL Calcium (8.5-10.1) mg/dL Phosphorus (2.6-4.7) mg/dL Magnesium (1.8-2.4) mg/dL Total Bilirubin (0.2-1.0) mg/dL Direct Bilirubin (0.0-0.5) mg/dL Indirect Bilirubin AST (15-37) IU/L ALT (14-63) IU/L Alkaline Phosphatase (46-116) U/L Troponin I (0.000-0.056) ng/mL Total Protein (6.4-8.2) g/dL Albumin (3.4-5.0) g/dL Globulin (2.6-4.0) g/dL Albumin/Globulin Ratio (0.9-1.6) Lipase (73-393) U/L TSH 3rd Generation (0.36-3.74) uIU/mL Urine Color Urine Appearance Urine pH (5.0-8.0) Ur Specific [place] (1.001-1.035) Urine Protein (NEGATIVE) mg/dL Urine Glucose (UA) (NEGATIVE) mg/dL Urine Ketones (NEGATIVE) mg/dL Urine Occult Blood (NEGATIVE) Urine Nitrite (NEGATIVE) Urine Bilirubin (NEGATIVE) Urine Ictotest Urine Urobilinogen (<2.0) EU/dL Ur Leukocyte Esterase (NEGATIVE) Urine RBC (0-2/HPF) Urine WBC (0-5/HPF) Ur Epithelial Cells (NONE-FEW) Urine Bacteria (NEGATIVE) Urine Opiates Screen (NEGATIVE) Ur Oxycodone Screen (NEGATIVE) Urine Methadone Screen (NEGATIVE) Acetaminophen ug/mL Ur Barbiturates Screen (NEGATIVE) Ur Phencyclidine Scrn (NEGATIVE) Ur Amphetamine Screen (NEGATIVE) U Methamphetamines Scrn (NEGATIVE) U Benzodiazepines Scrn (NEGATIVE) U Cocaine Metab Screen (NEGATIVE) U Marijuana (THC) Screen (NEGATIVE) Ethyl Alcohol mg/dL Med Orders - Current: Current Medications Diltiazem HCl (Cardizem Cd) 240 mg PO DAILY JAIME Last Admin: 03/19/19 20:27 Dose: 240 mg Folic Acid (Folic Acid) 1 mg PO BEDTIME [facility] Last Admin: 03/19/19 20:28 Dose: 1 mg Sodium Chloride (Normal Saline) 1,000 mls @ 150 mls/hr IV ASDIRECTED [facility] Last Admin: 03/20/19 03:04 Dose: 150 mls/hr Lorazepam (Ativan) 0 mg IVPUSH Q4H PRN; Protocol PRN Reason: Withdrawal Symptoms Lorazepam (Ativan) 0 mg PO Q4H PRN; Protocol PRN Reason: Withdrawal Symptoms Pantoprazole Sodium (Protonix) 40 mg PO BEDTIME [facility] Last Admin: 03/19/19 20:28 Dose: 40 mg Pneumococcal Polyvalent Vaccine (Pneumovax 23) 25 mcg IM .ONCE ONE Stop: 03/20/19 10:01 Thiamine HCl (Vitamin B-1) 100 mg PO BEDTIME [facility] Last Admin: 03/19/19 20:27 Dose: 100 mg Discontinued Medications Diltiazem HCl (Diltiazem) 20 mg IVPUSH ONETIME ONE Stop: 03/19/19 17:18 Last Admin: 03/19/19 17:30 Dose: 20 mg Diltiazem HCl (Diltiazem) 20 mg IVPUSH ONETIME ONE Stop: 03/19/19 17:43 Last Admin: 03/19/19 18:04 Dose: Not Given Diltiazem HCl (Diltiazem) 10 mg IVPUSH ONETIME ONE Stop: 03/19/19 18:05 Last Admin: 03/19/19 18:10 Dose: 10 mg Sodium Chloride (Normal Saline) 1,000 mls @ 999 mls/hr IV .Bolus ONE Stop: 03/19/19 17:46 Last Admin: 03/19/19 17:03 Dose: 999 mls/hr Multivitamins/Minerals 10 ml/Thiamine HCl 100 mg/ Folic Acid 1 mg/ Sodium Chloride 1,011.2 mls @ 999 mls/hr IV ONETIME ONE Stop: 03/19/19 17:49 Last Admin: 03/19/19 17:12 Dose: 999 mls/hr Magnesium Sulfate 4 gm/ Premix 100 mls @ 25 mls/hr IV ONETIME ONE Stop: 03/19/19 23:16 Last Admin: 03/19/19 20:23 Dose: 25 mls/hr Iopamidol (Isovue Multipack-370 (76%)) 50 ml IVPUSH ONETIME STA Stop: 03/19/19 19:33 Last Admin: 03/19/19 20:27 Dose: Not Given - Exam General: Alert, Cooperative Lungs: Clear to Auscultation, Normal Respiratory Effort Cardiovascular: Regular Rate, Regular Rhythm GI/Abdominal Exam: Normal Bowel Sounds, Soft, Non-Tender (Male) Exam: Other (scrotal lesions-possible ulcers) Extremities: No Pedal Edema Skin: Warm, Dry Psy/Mental Status: Withdrawal Symptoms (tremor) - Problem List Review Problem List Initiated/Reviewed/Updated: Yes - My Orders Last 24 Hours: My Active Orders 03/19/19 18:47 CIWAA Assessment [RC] Q4H Hemoccult [Fecal Occult Blood Collection] [RC] ASDIRECTED Intake and Output [RC] Q12H Vital Signs [RC] Q1H Abdomen Ltd [US] Stat Echo Comp wo Cont [US] Stat LORazepam [Ativan] See Protocol IVPUSH Q4H PRN Sequential Compression Device [OM.PC] Stat Resuscitation Status Stat 03/19/19 18:48 Antiembolic Devices [RC] Q12H 03/19/19 18:52 LORazepam [Ativan] See Protocol PO Q4H PRN 03/19/19 19:00 Diltiazem [Cardizem CD] 240 mg PO DAILY Sodium Chloride 0.9% [Normal Saline] 1,000 ml IV ASDIRECTED 03/19/19 19:50 HEPATITIS PANEL (4) [REF] Routine 03/19/19 21:00 Folic Acid 1 mg PO BEDTIME Pantoprazole [ProTONIX] 40 mg PO BEDTIME Thiamine [Vitamin B-1] 100 mg PO BEDTIME 03/20/19 Breakfast Regular Diet [DIET] 03/21/19 05:11 CBC WITH AUTO DIFF [HEME] AM CMP [COMPREHENSIVE METABOLIC PN,CMP] [CHEM] AM MAGNESIUM [CHEM] AM PHOSPHORUS [CHEM] AM 03/22/19 05:11 CBC WITH AUTO DIFF [HEME] AM CMP [COMPREHENSIVE METABOLIC PN,CMP] [CHEM] AM MAGNESIUM [CHEM] AM PHOSPHORUS [CHEM] AM 03/23/19 05:11 CBC WITH AUTO DIFF [HEME] AM CMP [COMPREHENSIVE METABOLIC PN,CMP] [CHEM] AM MAGNESIUM [CHEM] AM PHOSPHORUS [CHEM] AM - Plan Plan:: 7. Afib with RVR- started on cardizem 240 ER, still in Afib but rate controlled in the 70-80s, no anticoagulation because patient is thrombocytopenic. CTA was completed to rule out PE. No PE but did show nodular liver consistent with cirrhosis, esophageal varices, and lung nodule. Troponins were trended and negative x 3. Echo pending. Continue to monitor on telemetry 2. Elevated LFTs- improving. Hep panel and RUQ US pending, negative tylenol level, continue to monitor 3. Alcohol intoxication with impending withdrawal- CIWA/Ativan protocol, continue thiamine and folic acid. Last CIWAs were , no ativan given. Continue IVF at 150. Monitor magnesium and phosphorus daily. 4. Hypomagnesemia- improving, give another 2 grams today, recheck in AM 5. Hypokalemia- replace with 40 mEq x 2, recheck in Am 6. Thrombocytopenia- dropped from 84 to 59, continue to monitor 7. Lung nodule- 8mm on right- follow up with repeat CT scan in 6-12 months. 8. Evidence of esophageal varices and liver cirrhosis on imaging- will need to follow with GI as outpatient 9. Hypothyroidism- repeat TSH as outpatient and start medication if deemed appropriate by PCP 10. Scrotal lesions- keep area dry and use barrier cream
[2019-03-20] MEDS ORDERED: Magnesium Sulfate/Water 2 GM in Premix Bag 1 BAG IV ONE (08:38)
[2019-03-20] MEDS ORDERED: Potassium Chloride 20 MEQ Tab.ER PO ONE ×2 (08:39→12:00)
[2019-03-20] MEDS: Diltiazem 120 MG Cap.CD PO SCH (09:23)
[2019-03-20] MEDS ORDERED: Pneumococcal 23-Valent Conjugate Vaccine 0.5 ML Syringe IM ONE (10:00)
[2019-03-20] MEDS ORDERED: Pneumococcal Polyvalent-23 Vaccine 0.5 ML SDV ONE (10:59)
[2019-03-20] MEDS ORDERED: Pneumococcal Polyvalent-23 Vaccine 0.5 ML SDV IM ONE (11:00)
--- NOTE | 2019-03-20 11:27 | US ---
Limited abdominal ultrasound: Multiple real-time images of the right upper abdomen were obtained. Several gallstones are seen within the gallbladder neck. No gallbladder wall thickening or biliary duct dilatation is seen. Right kidney shows no hydronephrosis or mass and has a length of 13.1 cm. Solid mass is noted within the left lobe of the liver measuring 5.1 cm in size. Slightly prominent vessels are seen near the pancreatic head and is uncertain as to etiology. Impression: 1. Mass within the left lobe of the liver. 2. Questionable prominent vessels near the pancreatic head. 3. Several gallstones within the gallbladder neck. 4. Contrast enhanced CT study of the abdomen is recommended to further evaluate. Diagnostic code #9 MTDD
[2019-03-20] MEDS ORDERED: Iopamidol 755 MG/ML 500 ML Multipack Bottle IVPUSH STA (14:32)
--- NOTE | 2019-03-20 15:26 | CT ---
Three phase CT study of the liver/upper abdomen Technique: Noncontrast imaging was obtained from above the dome of the diaphragm inferiorly to the pubic symphysis. Arterial phase imaging then obtained after contrast administration from above the dome of the diaphragm inferiorly through the liver. Venous phase imaging then obtained during the nephrogram stage of the kidneys from above the dome of the diaphragm inferiorly through the pubic symphysis. Six-minute delayed images were also obtained from above the dome of the diaphragm inferiorly through the kidneys. Findings: Numerous varicosities are seen within the posterior mediastinum and posterior to the heart. Large varicosities are seen within the upper abdomen correlating to the vessels on previous ultrasound. Normal spleen is not seen. There is a soft tissue density noted within the left upper abdomen measuring 2.5 cm which is felt compatible with residual splenic tissue. Liver shows cirrhotic change with irregular contour and irregular contrast enhancement. There is a mass being seen within the left lobe of the liver which is fairly isodense to the liver measuring about 5.0 x 4.8 cm. This correlates to the ultrasound finding and given that the liver is cirrhotic this is highly suspicious for hepatoma. Several small low density findings are seen within the kidneys which are too small to characterize by Hounsfield unit measurements but most likely represent minimal cysts. Kidneys otherwise are unremarkable. Adrenal glands are unremarkable. Pancreas is within normal limits. Aorta shows diffuse atherosclerotic calcification which continues into the iliac vessels. No retroperitoneal adenopathy is seen. Prostate gland is mildly enlarged. Bladder is slightly thick-walled most likely representing change from mild bladder outlet obstruction. Focal increased stool is noted within the rectum. Minimal fluid is seen within the left abdomen. No other findings of ascites are seen. Calcified gallstones seen within the gallbladder. Bone window settings were reviewed which shows previous surgery at L4, L5 and S1. Scoliosis is noted within the spine. Impression: 1. Liver is cirrhotic. Prominent varicosities are seen within the posterior chest as well as within the upper abdomen. 2. Left lobe liver mass correlating to ultrasound finding. Given that the liver is cirrhotic this finding is highly suspicious for hepatoma. 3. Calcified gallstones. Minimal ascites is seen. 4. Focal increased stool within the rectum. 5. Other findings which are felt to be nonacute and incidental as described above. Diagnostic code #9 MTDD
--- NOTE | 2019-03-20 17:55 | PN ---
THC Physician - Brief Progress [id number]/17/2019 17:53[facility] [place] - MWN (SILVI[facility]) - LAURAN DAVE NAIRDate of Service 03/20/2019 17:53HPI/Even ts of Note [facility] Marc 02 Aron Oliveira Progress NoteNote written for 03/20/2019 AM, delayed due to EHR quantitative manager downtime.AgeGender admitted for afib RVR and EtOH withdrawal. History obtained pr imarily from review of EMR.Camera exam: Laying in bed. Vitals: reviewedLabs: reviewedRadiology: revie wedMeds: reviewedeICU Impression and Recommendations:Atrial Fibrillation, rate controlledWill defer a nticoagulation to primary serviceRecommend goal heart rate <110bpmAlcohol WithdrawalAlcohol withdrawa l protocol per institutional policy, including administration of PRN benzodiazepinesContinued telemet ry monitoringThiamine supplementation, 100mg dailyFolic acid, 400mcg dailyB6 (pyridoxine) supplementa tion, 2mg dailyThrombocytopenia work up per primary serviceDVT and GI prophylaxis per primary service , we are available to assist if desired.We are available to assist in further clarification, or imple mentation of any of the above recommendations if desired by primary service.Thank you for allowing us to participate in the care of this patient.The above note transcribed via dictation software. Please excuse any errors.Interventions Major-Arrhythmia - evaluation and management
[2019-03-20] MEDS: Folic Acid 1 MG Tab PO SCH (22:20)
[2019-03-20] MEDS: Thiamine 100 MG Tab PO SCH (22:20)
[2019-03-20] MEDS: Pantoprazole 40 MG Tab.CR PO SCH (22:20)
[2019-03-21] MEDS: Sodium Chloride 0.9% 1,000 ML IV SCH ×2 (01:25→15:19)
[2019-03-21] MEDS: LORazepam 2 MG/ML SDV IVPUSH PRN ×3 (03:53→17:51)
[2019-03-21 07:09] LABS: BLOOD UREA NITROGEN,BUN 8 mg/dL (7.0-18.0); CARBON DIOXIDE,CO2 23.1 mmol/L (21.0-32.0); CHLORIDE,CL 106 mmol/L (98-107); GLUCOSE RANDOM 118 mg/dL (74-106); POTASSIUM,K 3.5 mmol/L (3.5-5.1); SODIUM,NA 139 mmol/L (136-148)
--- NOTE | 2019-03-21 07:29 | PCM.PN ---
- General Info Date of Service: 03/21/19 Subjective Update: Patient reports feeling fine and requesting discharge, denies chest pain, shortness of breath, or abdominal pain. Still in Afib but rate controlled, HR 60-70s on tele. Last CIWA was 9 and he received Ativan. Yesterday, imaging showed liver mass, patient seemed to take the news well. - Review of Systems General: Reports: No Symptoms HEENT: Reports: No Symptoms Pulmonary: Reports: No Symptoms Cardiovascular: Reports: No Symptoms Gastrointestinal: Reports: No Symptoms Genitourinary: Reports: No Symptoms Musculoskeletal: Reports: No Symptoms Skin: Reports: No Symptoms Neurological: Reports: No Symptoms Psychiatric: Reports: No Symptoms - Patient Data Vitals - Most Recent: Last Vital Signs Temp 97.9 F 03/21/19 04:00 Pulse 76 03/21/19 06:00 Resp 21 H 03/21/19 06:00 BP 110/62 03/21/19 06:00 Pulse Ox 94 L 03/21/19 06:00 Weight - Most Recent: 83.869 kg I&O - Last 24 Hours: Intake & Output 03/20/19 03/21/19 03/21/19 22:59 06:59 14:59 Intake Total 300 2205 Output Total 200 150 Balance 100 2055 Lab Results Last 24 Hours: Laboratory Results - last 24 hr 03/20/19 03/20/19 03/21/19 Range/Units 06:29 06:29 06:37 WBC 5.98 6.37 (4.0-11.0) K/uL RBC 3.44 L 3.43 L (4.50-5.90) M/uL Hgb 12.3 L 12.3 L (13.0-17.0) g/dL Hct 34.4 L 34.9 L (38.0-50.0) % MCV 100.0 H 101.7 H (80.0-98.0) fL MCH 35.8 H 35.9 H (27.0-32.0) pg MCHC 35.8 35.2 (31.0-37.0) g/dL RDW Std Deviation 65.3 H 67.3 H (28.0-62.0) fl RDW Coeff of Miriam 18 H 18 H (11.0-15.0) % Plt Count 59 L 64 L (150-400) K/uL MPV 13.70 H (7.40-12.00) fL Neut % (Auto) 61.7 (48.0-80.0) % Lymph % (Auto) 24.8 (16.0-40.0) % [place] % (Auto) 12.4 (0.0-15.0) % Eos % (Auto) 0.3 (0.0-7.0) % Baso % (Auto) 0.8 (0.0-1.5) % Neut # (Auto) 3.9 (1.4-5.7) K/uL Lymph # (Auto) 1.6 (0.6-2.4) K/uL [place] # (Auto) 0.8 (0.0-0.8) K/uL Eos # (Auto) 0.0 (0.0-0.7) K/uL Baso # (Auto) 0.1 (0.0-0.1) K/uL Add Manual Diff YES Neutrophils % (Manual) 50 (48.0-80.0) % Band Neutrophils % 1 % Lymphocytes % (Manual) 33 (16.0-40.0) % Monocytes % (Manual) 15 (0.0-15.0) % Basophils % (Manual) 1 (0.0-1.5) % Nucleated RBC % 0.0 0.3 /100WBC Absolute Seg Neuts 3.0 (1.4-5.7) Band Neutrophils # 0.1 Lymphocytes # (Manual) 2.0 (0.6-2.4) Monocytes # (Manual) 0.9 H (0.0-0.8) Basophils # (Manual) 0.1 (0.0-0.1) Nucleated RBCs # 0 0 K/uL Sodium 140 (136-148) mmol/L Potassium 3.2 L (3.5-5.1) mmol/L Chloride 108 H (98-107) mmol/L Carbon Dioxide 22.4 (21.0-32.0) mmol/L BUN 8 (7.0-18.0) mg/dL Creatinine 0.9 (0.8-1.3) mg/dL Est Cr Clr Drug Dosing 84.49 mL/min Estimated GFR (MDRD) > 60.0 ml/min Glucose 106 (74-106) mg/dL Calcium 7.6 L (8.5-10.1) mg/dL Phosphorus 2.7 (2.6-4.7) mg/dL Magnesium 1.6 L (1.8-2.4) mg/dL Total Bilirubin 5.8 H (0.2-1.0) mg/dL AST 113 H (15-37) IU/L ALT 22 (14-63) IU/L Alkaline Phosphatase 96 (46-116) U/L Troponin I < 0.050 (0.000-0.056) ng/mL Total Protein 8.1 (6.4-8.2) g/dL Albumin 1.5 L (3.4-5.0) g/dL Globulin 6.6 H (2.6-4.0) g/dL Albumin/Globulin Ratio 0.2 L (0.9-1.6) Med Orders - Current: Current Medications Diltiazem HCl (Cardizem Cd) 240 mg PO DAILY [facility] Last Admin: 03/20/19 09:23 Dose: 240 mg Folic Acid (Folic Acid) 1 mg PO BEDTIME [facility] Last Admin: 03/20/19 22:20 Dose: 1 mg Sodium Chloride (Normal Saline) 1,000 mls @ 150 mls/hr IV ASDIRECTED [facility] Last Admin: 03/21/19 01:25 Dose: 150 mls/hr Lorazepam (Ativan) 0 mg IVPUSH Q4H PRN; Protocol PRN Reason: Withdrawal Symptoms Last Admin: 03/21/19 03:53 Dose: 1 mg Lorazepam (Ativan) 0 mg PO Q4H PRN; Protocol PRN Reason: Withdrawal Symptoms Pantoprazole Sodium (Protonix) 40 mg PO BEDTIME [facility] Last Admin: 03/20/19 22:20 Dose: 40 mg Thiamine HCl (Vitamin B-1) 100 mg PO BEDTIME [facility] Last Admin: 03/20/19 22:20 Dose: 100 mg Discontinued Medications Diltiazem HCl (Diltiazem) 20 mg IVPUSH ONETIME ONE Stop: 03/19/19 17:18 Last Admin: 03/19/19 17:30 Dose: 20 mg Diltiazem HCl (Diltiazem) 20 mg IVPUSH ONETIME ONE Stop: 03/19/19 17:43 Last Admin: 03/19/19 18:04 Dose: Not Given Diltiazem HCl (Diltiazem) 10 mg IVPUSH ONETIME ONE Stop: 03/19/19 18:05 Last Admin: 03/19/19 18:10 Dose: 10 mg Sodium Chloride (Normal Saline) 1,000 mls @ 999 mls/hr IV .Bolus ONE Stop: 03/19/19 17:46 Last Admin: 03/19/19 17:03 Dose: 999 mls/hr Multivitamins/Minerals 10 ml/Thiamine HCl 100 mg/ Folic Acid 1 mg/ Sodium Chloride 1,011.2 mls @ 999 mls/hr IV ONETIME ONE Stop: 03/19/19 17:49 Last Admin: 03/19/19 17:12 Dose: 999 mls/hr Magnesium Sulfate 4 gm/ Premix 100 mls @ 25 mls/hr IV ONETIME ONE Stop: 03/19/19 23:16 Last Admin: 03/19/19 20:23 Dose: 25 mls/hr Magnesium Sulfate 2 gm/ Premix 50 mls @ 25 mls/hr IV ONETIME ONE Stop: 03/20/19 10:37 Last Admin: 03/20/19 09:16 Dose: 25 mls/hr Iopamidol (Isovue Multipack-370 (76%)) 50 ml IVPUSH ONETIME STA Stop: 03/19/19 19:33 Last Admin: 03/19/19 20:27 Dose: Not Given Iopamidol (Isovue Multipack-370 (76%)) 100 ml IVPUSH ONETIME STA Stop: 03/20/19 14:33 Last Admin: 03/20/19 14:43 Dose: 100 ml Pneumococcal Polyvalent Vaccine (Pneumovax 23) 0.5 ml IM .ONCE ONE Stop: 03/20/19 11:01 Last Admin: 03/20/19 11:06 Dose: 0.5 ml Pneumococcal Polyvalent Vaccine (Pneumovax 23) Confirm Administered Dose 0.5 ml .ROUTE .STK-MED ONE Stop: 03/20/19 11:00 Last Admin: 03/20/19 11:04 Dose: Not Given Potassium Chloride (Klor-Con M20) 40 meq PO ONETIME ONE Stop: 03/20/19 08:40 Last Admin: 03/20/19 09:22 Dose: 40 meq Potassium Chloride (Klor-Con M20) 40 meq PO ONETIME ONE Stop: 03/20/19 12:01 Last Admin: 03/20/19 12:04 Dose: 40 meq - Exam Quality Assessment: Supplemental Oxygen General: Alert, Oriented, Cooperative Lungs: Clear to Auscultation, Normal Respiratory Effort Cardiovascular: Regular Rate, Irregular Rhythm GI/Abdominal Exam: Normal Bowel Sounds, Soft, Non-Tender, Hepatomegaly. No: Guarding, Rigid, Rebound Extremities: No Pedal Edema Skin: Warm, Dry, Intact Neurological: No New Focal Deficit Psy/Mental Status: Alert, Normal Affect, Normal Mood, Withdrawal Symptoms ( tremors) - Problem List Review Problem List Initiated/Reviewed/Updated: Yes - My Orders Last 24 Hours: My Active Orders 03/20/19 18:47 Echo Comp wo Cont [US] Stat 03/20/19 Breakfast Regular Diet [DIET] 03/21/19 06:37 CMP [COMPREHENSIVE METABOLIC PN,CMP] [CHEM] AM MAGNESIUM [CHEM] AM PHOSPHORUS [CHEM] AM 03/22/19 05:11 CBC WITH AUTO DIFF [HEME] AM CMP [COMPREHENSIVE METABOLIC PN,CMP] [CHEM] AM MAGNESIUM [CHEM] AM PHOSPHORUS [CHEM] AM 03/23/19 05:11 CBC WITH AUTO DIFF [HEME] AM CMP [COMPREHENSIVE METABOLIC PN,CMP] [CHEM] AM MAGNESIUM [CHEM] AM PHOSPHORUS [CHEM] AM - Plan Plan:: 7. Afib with RVR- continue on cardizem 240 ER, still in Afib but rate controlled in the 60-70s, no anticoagulation because patient is thrombocytopenic. CTA chest was completed to rule out PE. No PE but did show nodular liver consistent with cirrhosis, esophageal varices, and lung nodule. Troponins were trended and negative x 3. Echo pending. Continue to monitor on telemetry 2. Elevated LFTs-Bilirubin rising from 5.8 to 7.4, will get MRCP today. Hep panel pending. RUQ US found a mass on the left side of his liver and gallstones with no wall thickness or common bile duct dilation. Radiology recommended follow up with CT. CTA abdomen was performed and found liver cirrhosis, 5x4.8 cm hepatoma, and prominent varicosities. We have a call in to radiology to see if they can provide us with a more specific read in regards to the mass. Will discuss with GI once MRCP is back. 3. Alcohol intoxication with impending withdrawal- CIWA/Ativan protocol, continue thiamine and folic acid. Last CIWAs were 01/09, received a dose of Ativan early this morning. Continue IVF at 150. Monitor magnesium and phosphorus daily. 4. Hypomagnesemia-replace with 4 g IV, recheck in AM 5. Hypokalemia- resolved 6. Hypophosphatemia- will replace with 250 mg qid, recheck in AM 7. Thrombocytopenia- stable from 59-64 8. Lung nodule- 8mm on right- follow up with repeat CT scan in 6-12 months. 9. Evidence of esophageal varices and liver cirrhosis on imaging- will need to follow with GI as outpatient 10. Hypothyroidism- repeat TSH as outpatient and start medication if deemed appropriate by PCP 11. Scrotal lesions- keep area dry and use barrier cream
[2019-03-21] MEDS ORDERED: Magnesium Sulfate/Water 4 GM in Premix Bag 1 BAG IV ONE (08:02)
--- NOTE | 2019-03-21 08:25 | PN ---
THC Physician - Brief Progress [id number]/18/2019 08:15[facility] Marc Cano, [place] - LAURAN (SILVIAN) - MWN DAVE NAIRDate of Service 03/21/2019 08:15HPI/Even ts of Note eICU Progress [id number] admitted for afib RVR and EtOH withdrawal. History obtained primaril y from review of EMR.Camera exam: Laying in bed.Vitals: reviewedLabs: reviewedRadiology: reviewedMeds : reviewedeICU Impression and Recommendations:Atrial Fibrillation, rate controlledWill defer anticoag ulation to primary serviceRecommend goal heart rate <110bpmContinued telemetry monitoringAlcohol With drawalAlcohol withdrawal protocol per institutional policy, including administration of PRN benzodiaz epinesThiamine supplementation, 100mg dailyFolic acid, 400mcg dailyB6 (pyridoxine) supplementation, 2 mg dailyThrombocytopenia likely secondary to liver cirrhosisLiver cirrhosisLiver mass with concern fo r possible hepatomaWill defer to primary service regarding work up of liver mass, we are available to assist if desiredDVT and GI prophylaxis per primary service, we are available to assist if desired.W e are available to assist in further clarification, or implementation of any of the above recommendat ions if desired by primary service.Thank you for allowing us to participate in the care of this patie nt.The above note transcribed via dictation software. Please excuse any errors.Interventions Major-Ar rhythmia - evaluation and management 08:2 4
[2019-03-21] MEDS: Diltiazem 120 MG Cap.CD PO SCH (08:44)
[2019-03-21] MEDS ORDERED: Nystatin Crm 30 GM Tube TOP PRN (11:01)
[2019-03-21] MEDS: Phosphorus #1 250 MG Tab PO SCH ×2 (11:57→17:58)
[2019-03-21] MEDS ORDERED: Gadobenate Dimeglumine 529 MG/ML 20 ML SDV IVPUSH STA (16:10)
--- NOTE | 2019-03-21 19:21 | MR ---
Indication: Elevated bilirubin. Technique: MR I of the abdomen without intravenous gadolinium, MRCP. Three plane localizer, coronal T2 weighted, high-resolution, heavily T2 weighted 2D/3D MRCP images, axial T1 weighted in and out of phase, axial T2 weighted with fat suppression. No intravenous gadolinium administered. Comparison: CT of the abdomen pelvis, 03/20/2019. Findings: Several of the pulse sequences are limited by motion artifact, and are considered nondiagnostic. There is no common bile duct stone or mass. Common bile duct measures up to 7 millimeters in dimension. Gallstones with pericholecystic fluid. Ascites. Nodular surface of the liver, with a cirrhotic liver morphology. MRI with gadolinium is suggested if there is concern regarding hepatocellular carcinoma. Marked esophageal varices present in the posterior mediastinum. Mild perinephric fat stranding. Small renal cysts. No solid renal mass. Susceptibility artifact related to fusion in the lumbar spine. Impression: 1. Limited quality exam, secondary to motion artifact. 2. No common bile duct stone or mass. 3. Cholelithiasis with mild pericholecystic fluid. Note that pericholecystic fluid could be secondary to entities other than cholecystitis, such as liver parenchymal disease. 4. Cirrhotic liver morphology with evidence of portal hypertension/esophageal varices. 5. This report is in agreement with the preliminary report submitted by Teler[facility]iology, 03/21/2019, 1921 hours. Dictated by Harrison Monreal MD @ Mar 22 2019 12:44PM Signed by Dr. Harrison Monreal @ Mar 22 2019 12:54PM
[2019-03-22] MEDS: Thiamine 100 MG Tab PO SCH ×2 (00:49→22:00)
[2019-03-22] MEDS: Folic Acid 1 MG Tab PO SCH ×2 (00:49→22:00)
[2019-03-22] MEDS: Pantoprazole 40 MG Tab.CR PO SCH ×2 (00:49→22:00)
[2019-03-22] MEDS: LORazepam 2 MG/ML SDV IVPUSH PRN ×2 (00:58→14:39)
[2019-03-22] MEDS: Phosphorus #1 250 MG Tab PO SCH ×4 (00:59→18:22)
[2019-03-22] MEDS: Sodium Chloride 0.9% 1,000 ML IV SCH ×2 (02:28→19:06)
[2019-03-22 06:52] LABS: BLOOD UREA NITROGEN,BUN 8 mg/dL (7.0-18.0); CARBON DIOXIDE,CO2 21.7 mmol/L (21.0-32.0); CHLORIDE,CL 107 mmol/L (98-107); GLUCOSE RANDOM 116 mg/dL (74-106); POTASSIUM,K 3.6 mmol/L (3.5-5.1); SODIUM,NA 140 mmol/L (136-148)
[2019-03-22] MEDS ORDERED: Magnesium Sulfate/Water 4 GM in Premix Bag 1 BAG IV ONE (07:36)
--- NOTE | 2019-03-22 07:50 | PCM.PN ---
- General Info Date of Service: 03/22/19 Subjective Update: Patient reports he feels fine and is ready to leave. CIWA scores have been 16, 14,15 and he has been receiving Ativan, patient declines withdrawal symptoms. Attempted MRCP yesterday but patient was unable to hold still so study is limited. He has been in Afib but the rate is creeping up to 90s-100s. Patient denies chest pain, shortness of breath, abdominal pain, nausea/vomiting. Reviewed records from his stay in [place] in 2013. 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 While there his bilirubin was elevated as it has been here. - Review of Systems General: Reports: No Symptoms HEENT: Reports: No Symptoms Pulmonary: Reports: No Symptoms Cardiovascular: Reports: No Symptoms Gastrointestinal: Reports: No Symptoms Genitourinary: Reports: No Symptoms Musculoskeletal: Reports: No Symptoms Skin: Reports: No Symptoms Neurological: Reports: No Symptoms Psychiatric: Reports: No Symptoms - Patient Data Vitals - Most Recent: Last Vital Signs Temp 99.5 F 03/22/19 04:00 Pulse 100 03/22/19 04:00 Resp 20 03/22/19 04:00 BP 142/67 H 03/22/19 04:00 Pulse Ox 94 L 03/22/19 04:00 Weight - Most Recent: 83.869 kg I&O - Last 24 Hours: Intake & Output 03/21/19 03/22/19 03/22/19 22:59 06:59 14:59 Intake Total 2280 950 Output Total 1750 Balance 530 950 Lab Results Last 24 Hours: Laboratory Results - last 24 hr 03/21/19 03/22/19 03/22/19 Range/Units 09:35 06:19 06:19 WBC 7.28 (4.0-11.0) K/uL RBC 3.68 L (4.50-5.90) M/uL Hgb 13.3 (13.0-17.0) g/dL Hct 37.3 L (38.0-50.0) % MCV 101.4 H (80.0-98.0) fL MCH 36.1 H (27.0-32.0) pg MCHC 35.7 (31.0-37.0) g/dL RDW Std Deviation 66.7 H (28.0-62.0) fl RDW Coeff of Miriam 18 H (11.0-15.0) % Plt Count 71 L (150-400) K/uL Neut % (Auto) 69.6 (48.0-80.0) % Lymph % (Auto) 16.3 (16.0-40.0) % [place] % (Auto) 12.8 (0.0-15.0) % Eos % (Auto) 0.5 (0.0-7.0) % Baso % (Auto) 0.8 (0.0-1.5) % Neut # (Auto) 5.1 (1.4-5.7) K/uL Lymph # (Auto) 1.2 (0.6-2.4) K/uL [place] # (Auto) 0.9 H (0.0-0.8) K/uL Eos # (Auto) 0.0 (0.0-0.7) K/uL Baso # (Auto) 0.1 (0.0-0.1) K/uL Nucleated RBC % 1.2 /100WBC Nucleated RBCs # 0 K/uL INR 1.45 Sodium 140 (136-148) mmol/L Potassium 3.6 (3.5-5.1) mmol/L Chloride 107 (98-107) mmol/L Carbon Dioxide 21.7 (21.0-32.0) mmol/L BUN 8 (7.0-18.0) mg/dL Creatinine 0.9 (0.8-1.3) mg/dL Est Cr Clr Drug Dosing 84.49 mL/min Estimated GFR (MDRD) > 60.0 ml/min Glucose 116 H (74-106) mg/dL Calcium 7.4 L (8.5-10.1) mg/dL Phosphorus 1.4 L (2.6-4.7) mg/dL Magnesium 1.2 L (1.8-2.4) mg/dL Total Bilirubin 6.6 H (0.2-1.0) mg/dL AST 119 H (15-37) IU/L ALT 26 (14-63) IU/L Alkaline Phosphatase 105 (46-116) U/L Total Protein 8.8 H (6.4-8.2) g/dL Albumin 1.7 L (3.4-5.0) g/dL Globulin 7.1 H (2.6-4.0) g/dL Albumin/Globulin Ratio 0.2 L (0.9-1.6) 03/22/19 Range/Units 06:19 WBC (4.0-11.0) K/uL RBC (4.50-5.90) M/uL Hgb (13.0-17.0) g/dL Hct (38.0-50.0) % MCV (80.0-98.0) fL MCH (27.0-32.0) pg MCHC (31.0-37.0) g/dL RDW Std Deviation (28.0-62.0) fl RDW Coeff of Miriam (11.0-15.0) % Plt Count (150-400) K/uL Neut % (Auto) (48.0-80.0) % Lymph % (Auto) (16.0-40.0) % [place] % (Auto) (0.0-15.0) % Eos % (Auto) (0.0-7.0) % Baso % (Auto) (0.0-1.5) % Neut # (Auto) (1.4-5.7) K/uL Lymph # (Auto) (0.6-2.4) K/uL [place] # (Auto) (0.0-0.8) K/uL Eos # (Auto) (0.0-0.7) K/uL Baso # (Auto) (0.0-0.1) K/uL Nucleated RBC % /100WBC Nucleated RBCs # K/uL INR 1.52 Sodium (136-148) mmol/L Potassium (3.5-5.1) mmol/L Chloride (98-107) mmol/L Carbon Dioxide (21.0-32.0) mmol/L BUN (7.0-18.0) mg/dL Creatinine (0.8-1.3) mg/dL Est Cr Clr Drug Dosing mL/min Estimated GFR (MDRD) ml/min Glucose (74-106) mg/dL Calcium (8.5-10.1) mg/dL Phosphorus (2.6-4.7) mg/dL Magnesium (1.8-2.4) mg/dL Total Bilirubin (0.2-1.0) mg/dL AST (15-37) IU/L ALT (14-63) IU/L Alkaline Phosphatase (46-116) U/L Total Protein (6.4-8.2) g/dL Albumin (3.4-5.0) g/dL Globulin (2.6-4.0) g/dL Albumin/Globulin Ratio (0.9-1.6) Justin Results Last 24 Hours: Microbiology 03/19/19 18:59 Urine Culture - Final Urine, Clean Catch MIXED SARABJIT >100,000 CFU/ML Med Orders - Current: Current Medications Diltiazem HCl (Cardizem Cd) 240 mg PO DAILY [facility] Last Admin: 03/21/19 08:44 Dose: 240 mg Folic Acid (Folic Acid) 1 mg PO BEDTIME [facility] Last Admin: 03/22/19 00:49 Dose: Not Given Sodium Chloride (Normal Saline) 1,000 mls @ 100 mls/hr IV ASDIRECTED [facility] Last Admin: 03/22/19 02:28 Dose: 100 mls/hr Magnesium Sulfate 4 gm/ Premix 100 mls @ 25 mls/hr IV ONETIME ONE Stop: 03/22/19 11:35 Lorazepam (Ativan) 0 mg IVPUSH Q4H PRN; Protocol PRN Reason: Withdrawal Symptoms Last Admin: 03/22/19 00:58 Dose: 1 mg Lorazepam (Ativan) 0 mg PO Q4H PRN; Protocol PRN Reason: Withdrawal Symptoms Nystatin (Nystatin Crm) 0 gm TOP QID PRN PRN Reason: Rash Pantoprazole Sodium (Protonix) 40 mg PO BEDTIME [facility] Last Admin: 03/22/19 00:49 Dose: Not Given Sodium Phosphate (Neutra-Phos) 250 mg PO QID [facility] Last Admin: 03/22/19 06:18 Dose: Not Given Thiamine HCl (Vitamin B-1) 100 mg PO BEDTIME [facility] Last Admin: 03/22/19 00:49 Dose: Not Given Discontinued Medications Diltiazem HCl (Diltiazem) 20 mg IVPUSH ONETIME ONE Stop: 03/19/19 17:18 Last Admin: 03/19/19 17:30 Dose: 20 mg Diltiazem HCl (Diltiazem) 20 mg IVPUSH ONETIME ONE Stop: 03/19/19 17:43 Last Admin: 03/19/19 18:04 Dose: Not Given Diltiazem HCl (Diltiazem) 10 mg IVPUSH ONETIME ONE Stop: 03/19/19 18:05 Last Admin: 03/19/19 18:10 Dose: 10 mg Gadobenate Dimeglumine (Multihance) 20 ml IVPUSH ONETIME STA Stop: 03/21/19 16:11 Last Admin: 03/21/19 18:54 Dose: Not Given Sodium Chloride (Normal Saline) 1,000 mls @ 999 mls/hr IV .Bolus ONE Stop: 03/19/19 17:46 Last Admin: 03/19/19 17:03 Dose: 999 mls/hr Multivitamins/Minerals 10 ml/Thiamine HCl 100 mg/ Folic Acid 1 mg/ Sodium Chloride 1,011.2 mls @ 999 mls/hr IV ONETIME ONE Stop: 03/19/19 17:49 Last Admin: 03/19/19 17:12 Dose: 999 mls/hr Sodium Chloride (Normal Saline) 1,000 mls @ 150 mls/hr IV ASDIRECTED [facility] Last Admin: 03/21/19 01:25 Dose: 150 mls/hr Magnesium Sulfate 4 gm/ Premix 100 mls @ 25 mls/hr IV ONETIME ONE Stop: 03/19/19 23:16 Last Admin: 03/19/19 20:23 Dose: 25 mls/hr Magnesium Sulfate 2 gm/ Premix 50 mls @ 25 mls/hr IV ONETIME ONE Stop: 03/20/19 10:37 Last Admin: 03/20/19 09:16 Dose: 25 mls/hr Magnesium Sulfate 4 gm/ Premix 100 mls @ 25 mls/hr IV ONETIME ONE Stop: 03/21/19 12:01 Last Admin: 03/21/19 08:31 Dose: 25 mls/hr Iopamidol (Isovue Multipack-370 (76%)) 50 ml IVPUSH ONETIME STA Stop: 03/19/19 19:33 Last Admin: 03/19/19 20:27 Dose: Not Given Iopamidol (Isovue Multipack-370 (76%)) 100 ml IVPUSH ONETIME STA Stop: 03/20/19 14:33 Last Admin: 03/20/19 14:43 Dose: 100 ml Pneumococcal Polyvalent Vaccine (Pneumovax 23) 0.5 ml IM .ONCE ONE Stop: 03/20/19 11:01 Last Admin: 03/20/19 11:06 Dose: 0.5 ml Pneumococcal Polyvalent Vaccine (Pneumovax 23) Confirm Administered Dose 0.5 ml .ROUTE .STK-MED ONE Stop: 03/20/19 11:00 Last Admin: 03/20/19 11:04 Dose: Not Given Potassium Chloride (Klor-Con M20) 40 meq PO ONETIME ONE Stop: 03/20/19 08:40 Last Admin: 03/20/19 09:22 Dose: 40 meq Potassium Chloride (Klor-Con M20) 40 meq PO ONETIME ONE Stop: 03/20/19 12:01 Last Admin: 03/20/19 12:04 Dose: 40 meq - Exam General: Alert Lungs: Clear to Auscultation, Normal Respiratory Effort Cardiovascular: Regular Rate, Irregular Rhythm GI/Abdominal Exam: Normal Bowel Sounds, Soft, Non-Tender, Hepatomegaly Extremities: No Pedal Edema Skin: Warm, Dry, Intact Neurological: No New Focal Deficit Psy/Mental Status: Alert, Normal Affect, Normal Mood, Withdrawal Symptoms - Problem List Review Problem List Initiated/Reviewed/Updated: Yes - My Orders Last 24 Hours: My Active Orders 03/21/19 11:01 PT Evaluation and Treatment [CONS] Routine Nystatin [Nystatin Crm] See Dose Instructions TOP QID PRN 03/21/19 14:40 Transfer Patient (Change bed) [ADT] Routine 03/21/19 14:55 Sodium Chloride 0.9% [Normal Saline] 1,000 ml IV ASDIRECTED 03/21/19 15:25 Telemetry Monitoring [Cardiac Monitoring] [RC] . DIRECTED 03/22/19 07:36 Magnesium Sulfate/Water [Magnesium Sulfate in Water Premix] 4 gm Premix Bag 1 bag IV ONETIME 03/23/19 05:11 CBC WITH AUTO DIFF [HEME] AM CMP [COMPREHENSIVE METABOLIC PN,CMP] [CHEM] AM INR,PT,PROTHROMBIN TIME [COAG] AM MAGNESIUM [CHEM] AM PHOSPHORUS [CHEM] AM 03/24/19 05:11 INR,PT,PROTHROMBIN TIME [COAG] AM - Plan Plan:: 7. Afib with RVR- continue on cardizem 240 ER, still in Afib , rate increased from 60-70s to 90-100s likely related with withdrawal, continue to monitor, no anticoagulation because patient is thrombocytopenic. CTA chest was completed to rule out PE. No PE but did show nodular liver consistent with cirrhosis, esophageal varices, and lung nodule. Troponins were trended and negative x 3. Echo pending. Echo showed EF og 60-65%, no regional wall motion abn, and moderate biatrial enlargement. Continue to monitor on telemetry 2. Elevated LFTs-Bilirubin improved from 7.4 to 6.6, hx of hyperbilirubinemia in 2013. MRCP limited due to patient not being able to stay still, did show multiple small gallstones, mild GB wall thickening and mild pericholecystic fluids but no CBD dilation. Will consult general surgery to evaluate GB. Hep panel pending. RUQ US on 03/20 found a mass on the left side of his liver and gallstones with no wall thickness or common bile duct dilation. Radiology recommended follow up with CT. CTA abdomen was performed and found liver cirrhosis, 5x4.8 cm hepatoma, and prominent varicosities. Discussed mass with radiology and they stated it was hepatocellular carcinoma based on imaging. 3. Alcohol intoxication with impending withdrawal- CIWA/Ativan protocol, continue thiamine and folic acid. Last CIWAs were for which he has been receiving Ativan. Continue IVF at 150. Monitor magnesium and phosphorus daily. 4. Hypomagnesemia-replace with 4 g IV, recheck in AM 5. Hypophosphatemia- will replace with 250 mg qid, patient was refusing doses yesterday and his phos level dropped from 1.6 to 1.4. Patient denies that he refused the medication but states he is willing to take it today. 6. Thrombocytopenia- stable from 64 to 71 7. Lung nodule- 8mm on right- follow up with repeat CT scan in 6-12 months. 8. Evidence of esophageal varices and liver cirrhosis on imaging- will need to follow with GI as outpatient 9. Hypothyroidism- repeat TSH as outpatient and start medication if deemed appropriate by PCP 10. Scrotal lesions- keep area dry and use barrier cream
[2019-03-22] MEDS: Diltiazem 120 MG Cap.CD PO SCH (08:49)
--- NOTE | 2019-03-22 14:53 | ECHO ---
The echocardiogram report can be seen in this patient's EMR (Electronic Medical Records) in the REPORTS section. The echocardiogram report has also been scanned into PACS and can be seen there as well. CHELSI
--- NOTE | 2019-03-22 23:52 | PCM.SN ---
- Free Text/Narrative Note: pt seen, chart reviewed; pt denied any abd pain, Jj sign negative; pt is jaundice; with new onset of afib, card work up continue, pt is not a surgical candidate if biliary tree not obstructed or not having cholecystitis; If clinically suspicious for acute cholecystitis, would proceed w HIDA scan to assess for biliary tree obstruction; If HIDA is positive and pt is not a surgical candidate, then intervention radiologist for cholecystomy tube would decompress gallbladder, and interval gall bladder surgery 3 - 6 month if need arise. Thanks for the consult and care of this pleasant gentleman.
--- NOTE | 2019-03-23 00:05 | PCM.CONS ---
H&P History of Present Illness - General Date of Service: 03/22/19 Admit Problem/Dx: Admission Diagnosis/Problem Admission Diagnosis/Problem Atrial fibrillation with rapid ventricular response Source of Information: Patient History Limitations: Reports: No Limitations - History of Present Illness Initial Comments - Free Text/Narative: Please refer to excellent h/p by Dr. Nicholson; in summary pt has hx of etoh abuse , and was brought to ED by law enforcement; and noted for new onset of afib; and t bili of 6.7; pt has since been admitted for medical treatment of various problems, thrombocytopenia, plt of 80, alcohol withdraw, and worked up for jaundice of tbili of 6.7, noted for gall stones; surgery was consulted today; pt was seen, and very polite, and cooperative, and clear mind; pt denied abd pain/nausea or vomitting since in hospital Onset of Symptoms: Reports: Unknown/Unsure Improves with: Reports: None Worsens with: Reports: None Associated Symptoms: Reports: No Other Symptoms Bilateral Scrotum Pain Score (Numeric/FACES): 5 Generalized Pain Score (Numeric/FACES): 2 - Related Data Allergies/Adverse Reactions: Allergies Allergy/AdvReac Type Severity Reaction Status Date / Time No Known Allergies Allergy Verified 03/19/19 21:49 Home Medications: Home Meds . [Unable to Verify Home Med List] 03/19/19 [History] Past Medical History - Past Health History Medical/Surgical History: Denies Medical/Surgical History HEENT History: Reports: Other (See Below) Other HEENT History: wears bifocal glasses Cardiovascular History: Reports: None Respiratory History: Reports: None Gastrointestinal History: Reports: None Genitourinary History: Reports: None Musculoskeletal History: Reports: Back Pain, Chronic, Fracture Other Musculoskeletal History: rib fracture sustained after a fall Neurological History: Reports: None Psychiatric History: Reports: Depression Endocrine/Metabolic History: Reports: None - Infectious Disease History Infectious Disease History: Reports: None - Past Surgical History Head Surgeries/Procedures: Reports: Craniotomy Cardiovascular Surgical History: Reports: None Other GI Surgeries/Procedures: splenectomy Neurological Surgical History: Reports: Other (See Below) Other Neurological Surgeries/Procedures: brain surgery after a fall Musculoskeletal Surgical History: Reports: Other (See Below) Other Musculoskeletal Surgeries/Procedures:: back surgery Social & Family History - Family History Family Medical History: Noncontributory - Tobacco Use Smoking Status *Q: Never Smoker Second Hand Smoke Exposure: No - Caffeine Use Caffeine Use: Reports: Other Other Caffeine Use: gatorade - Alcohol Use Days Per Week of Alcohol Use: 7 Number of Drinks Per Day: 2 Total Drinks Per Week: 14 Date of Last Drink: 03/19/19 Time of Last Drink: 16:00 - Recreational Drug Use Recreational Drug Use: No H&P Review of Systems - Review of Systems: Review Of Systems: ROS reveals no pertinent complaints other than HPI. Exam - Exam Exam: See Below - Vital Signs Vital Signs: Last Vital Signs Temp 98.4 F 03/22/19 22:00 Pulse 90 03/22/19 22:00 Resp 20 03/22/19 22:00 BP 141/84 H 03/22/19 22:00 Pulse Ox 94 L 03/22/19 22:00 Weight: 184 lb 14.4 oz - Exam General: Alert, Oriented Neck: Supple Lungs: Clear to Auscultation Cardiovascular: Regular Rate GI/Abdominal Exam: Normal Bowel Sounds (abd exam benign, nontender), Soft, Non- Tender, No Distention - Patient Data Lab Results Last 24 hrs: Laboratory Results - last 24 hr 03/19/19 03/22/19 03/22/19 Range/Units 19:50 06:19 06:19 WBC 7.28 (4.0-11.0) K/uL RBC 3.68 L (4.50-5.90) M/uL Hgb 13.3 (13.0-17.0) g/dL Hct 37.3 L (38.0-50.0) % MCV 101.4 H (80.0-98.0) fL MCH 36.1 H (27.0-32.0) pg MCHC 35.7 (31.0-37.0) g/dL RDW Std Deviation 66.7 H (28.0-62.0) fl RDW Coeff of Miriam 18 H (11.0-15.0) % Plt Count 71 L (150-400) K/uL Neut % (Auto) 69.6 (48.0-80.0) % Lymph % (Auto) 16.3 (16.0-40.0) % [place] % (Auto) 12.8 (0.0-15.0) % Eos % (Auto) 0.5 (0.0-7.0) % Baso % (Auto) 0.8 (0.0-1.5) % Neut # (Auto) 5.1 (1.4-5.7) K/uL Lymph # (Auto) 1.2 (0.6-2.4) K/uL [place] # (Auto) 0.9 H (0.0-0.8) K/uL Eos # (Auto) 0.0 (0.0-0.7) K/uL Baso # (Auto) 0.1 (0.0-0.1) K/uL Nucleated RBC % 1.2 /100WBC Nucleated RBCs # 0 K/uL INR Sodium 140 (136-148) mmol/L Potassium 3.6 (3.5-5.1) mmol/L Chloride 107 (98-107) mmol/L Carbon Dioxide 21.7 (21.0-32.0) mmol/L BUN 8 (7.0-18.0) mg/dL Creatinine 0.9 (0.8-1.3) mg/dL Est Cr Clr Drug Dosing 84.49 mL/min Estimated GFR (MDRD) > 60.0 ml/min Glucose 116 H (74-106) mg/dL Calcium 7.4 L (8.5-10.1) mg/dL Phosphorus 1.4 L (2.6-4.7) mg/dL Magnesium 1.2 L (1.8-2.4) mg/dL Total Bilirubin 6.6 H (0.2-1.0) mg/dL AST 119 H (15-37) IU/L ALT 26 (14-63) IU/L Alkaline Phosphatase 105 (46-116) U/L Total Protein 8.8 H (6.4-8.2) g/dL Albumin 1.7 L (3.4-5.0) g/dL Globulin 7.1 H (2.6-4.0) g/dL Albumin/Globulin Ratio 0.2 L (0.9-1.6) Hepatitis A IgM Ab Negative (Negative) Hep Bs Antigen Negative (Negative) Hep B Core IgM Ab Negative (Negative) Hepatitis C Antibody <0.1 (0.0-0.9) s/co ratio 03/22/ Range/Units 06:19 WBC (4.0-11.0) K/uL RBC (4.50-5.90) M/uL Hgb (13.0-17.0) g/dL Hct (38.0-50.0) % MCV (80.0-98.0) fL MCH (27.0-32.0) pg MCHC (31.0-37.0) g/dL RDW Std Deviation (28.0-62.0) fl RDW Coeff of Miriam (11.0-15.0) % Plt Count (150-400) K/uL Neut % (Auto) (48.0-80.0) % Lymph % (Auto) (16.0-40.0) % [place] % (Auto) (0.0-15.0) % Eos % (Auto) (0.0-7.0) % Baso % (Auto) (0.0-1.5) % Neut # (Auto) (1.4-5.7) K/uL Lymph # (Auto) (0.6-2.4) K/uL [place] # (Auto) (0.0-0.8) K/uL Eos # (Auto) (0.0-0.7) K/uL Baso # (Auto) (0.0-0.1) K/uL Nucleated RBC % /100WBC Nucleated RBCs # K/uL INR 1.52 Sodium (136-148) mmol/L Potassium (3.5-5.1) mmol/L Chloride (98-107) mmol/L Carbon Dioxide (21.0-32.0) mmol/L BUN (7.0-18.0) mg/dL Creatinine (0.8-1.3) mg/dL Est Cr Clr Drug Dosing mL/min Estimated GFR (MDRD) ml/min Glucose (74-106) mg/dL Calcium (8.5-10.1) mg/dL Phosphorus (2.6-4.7) mg/dL Magnesium (1.8-2.4) mg/dL Total Bilirubin (0.2-1.0) mg/dL AST (15-37) IU/L ALT (14-63) IU/L Alkaline Phosphatase (46-116) U/L Total Protein (6.4-8.2) g/dL Albumin (3.4-5.0) g/dL Globulin (2.6-4.0) g/dL Albumin/Globulin Ratio (0.9-1.6) Hepatitis A IgM Ab (Negative) Hep Bs Antigen (Negative) Hep B Core IgM Ab (Negative) Hepatitis C Antibody (0.0-0.9) s/co ratio Result Diagrams: 03/22/19 06:19 03/22/19 06:19 Consult PN Assessment/Plan Procedures: Procedures ASSAY OF AMMONIA (05/19/17) COMPLETE CBC W/AUTO DIFF WBC (09/02/16) COMPREHEN METABOLIC PANEL (09/02/16) ROUTINE VENIPUNCTURE (03/10/17) URINALYSIS AUTO W/O SCOPE (08/23/15) Problem List Initiated/Reviewed/Updated: Yes Plan: no abd pain per pt and nontender abd, and negative berger sign upon exam; HIDA scan if suspicious for acute cholecystitis; cholecystotomy by intervention radiologist if positive HIDA would decompress gall bladder and follow with interval gallbladder surgery 3 - 6 month if indicated; currently pt has new onset of cardiac event, afib, and thrombocytopenia, around plt 80, and cirrhotic liver, and pt would not be a surgical candidate for gall bladder surgery in our facility, even if the need arise. Thanks for the consult and care of this pleasent pt
[2019-03-23] MEDS: Phosphorus #1 250 MG Tab PO SCH ×3 (00:45→13:02)
[2019-03-23] MEDS: Sodium Chloride 0.9% 1,000 ML IV SCH (04:30)
[2019-03-23 07:16] LABS: BLOOD UREA NITROGEN,BUN 8 mg/dL (7.0-18.0); CARBON DIOXIDE,CO2 23.2 mmol/L (21.0-32.0); CHLORIDE,CL 110 mmol/L (98-107); GLUCOSE RANDOM 129 mg/dL (74-106); POTASSIUM,K 2.9 mmol/L (3.5-5.1); SODIUM,NA 144 mmol/L (136-148)
[2019-03-23] MEDS ORDERED: Magnesium Sulfate/Water 4 GM in Premix Bag 1 BAG IV ONE (08:04)
[2019-03-23] MEDS ORDERED: Potassium Chloride 20 MEQ Tab.ER PO ONE ×4 (08:05→16:00)
[2019-03-23] MEDS: Diltiazem 120 MG Cap.CD PO SCH (08:37)
--- NOTE | 2019-03-23 08:37 | PCM.PN ---
- General Info Date of Service: 03/23/19 Subjective Update: The patient reports he feels a lot better today. Last CIWAs wer , has not received any Ativan since yesterday afternoon. Denies chest pain, shortness of breath, abdominal pain, or palpitations. Eating and drinking appropriately. - Review of Systems General: Reports: No Symptoms HEENT: Reports: No Symptoms Pulmonary: Reports: No Symptoms Cardiovascular: Reports: No Symptoms Gastrointestinal: Reports: No Symptoms Genitourinary: Reports: No Symptoms Musculoskeletal: Reports: No Symptoms Skin: Reports: No Symptoms Neurological: Reports: No Symptoms Psychiatric: Reports: No Symptoms - Patient Data Vitals - Most Recent: Last Vital Signs Temp 99.0 F 03/23/19 05:00 Pulse 84 03/23/19 05:00 Resp 18 03/23/19 05:00 BP 140/83 03/23/19 05:00 Pulse Ox 94 L 03/23/19 05:00 Weight - Most Recent: 83.869 kg I&O - Last 24 Hours: Intake & Output 03/22/19 03/23/19 03/23/19 22:59 06:59 14:59 Intake Total 1532 1862 Output Total 0 640 Balance 1532 1222 Lab Results Last 24 Hours: Laboratory Results - last 24 hr 03/19/19 03/23/19 03/23/19 Range/Units 19:50 06:41 06:41 WBC 7.01 (4.0-11.0) K/uL RBC 3.76 L (4.50-5.90) M/uL Hgb 13.4 (13.0-17.0) g/dL Hct 38.5 (38.0-50.0) % MCV 102.4 H (80.0-98.0) fL MCH 35.6 H (27.0-32.0) pg MCHC 34.8 (31.0-37.0) g/dL RDW Std Deviation 69.3 H (28.0-62.0) fl RDW Coeff of Miriam 19 H (11.0-15.0) % Plt Count 89 L (150-400) K/uL Add Manual Diff YES Neutrophils % (Manual) 60 (48.0-80.0) % Band Neutrophils % 4 % Lymphocytes % (Manual) 28 (16.0-40.0) % Monocytes % (Manual) 7 (0.0-15.0) % Eosinophils % (Manual) 1 (0.0-7.0) % Nucleated RBC % 1.7 /100WBC Absolute Seg Neuts 4.2 (1.4-5.7) Band Neutrophils # 0.3 Lymphocytes # (Manual) 2.0 (0.6-2.4) Monocytes # (Manual) 0.5 (0.0-0.8) Eosinophils # (Manual) 0.1 (0.0-0.7) Nucleated RBCs # 0 K/uL INR Sodium 144 (136-148) mmol/L Potassium 2.9 L (3.5-5.1) mmol/L Chloride 110 H (98-107) mmol/L Carbon Dioxide 23.2 (21.0-32.0) mmol/L BUN 8 (7.0-18.0) mg/dL Creatinine 1.0 (0.8-1.3) mg/dL Est Cr Clr Drug Dosing 76.04 mL/min Estimated GFR (MDRD) > 60.0 ml/min Glucose 129 H (74-106) mg/dL Calcium 7.5 L (8.5-10.1) mg/dL Phosphorus 2.8 (2.6-4.7) mg/dL Magnesium 1.3 L (1.8-2.4) mg/dL Total Bilirubin 5.3 H (0.2-1.0) mg/dL AST 94 H (15-37) IU/L ALT 26 (14-63) IU/L Alkaline Phosphatase 99 (46-116) U/L Total Protein 8.4 H (6.4-8.2) g/dL Albumin 1.6 L (3.4-5.0) g/dL Globulin 6.8 H (2.6-4.0) g/dL Albumin/Globulin Ratio 0.2 L (0.9-1.6) Hepatitis A IgM Ab Negative (Negative) Hep Bs Antigen Negative (Negative) Hep B Core IgM Ab Negative (Negative) Hepatitis C Antibody <0.1 (0.0-0.9) s/co ratio 03/23/ Range/Units 06:41 WBC (4.0-11.0) K/uL RBC (4.50-5.90) M/uL Hgb (13.0-17.0) g/dL Hct (38.0-50.0) % MCV (80.0-98.0) fL MCH (27.0-32.0) pg MCHC (31.0-37.0) g/dL RDW Std Deviation (28.0-62.0) fl RDW Coeff of Miriam (11.0-15.0) % Plt Count (150-400) K/uL Add Manual Diff Neutrophils % (Manual) (48.0-80.0) % Band Neutrophils % % Lymphocytes % (Manual) (16.0-40.0) % Monocytes % (Manual) (0.0-15.0) % Eosinophils % (Manual) (0.0-7.0) % Nucleated RBC % /100WBC Absolute Seg Neuts (1.4-5.7) Band Neutrophils # Lymphocytes # (Manual) (0.6-2.4) Monocytes # (Manual) (0.0-0.8) Eosinophils # (Manual) (0.0-0.7) Nucleated RBCs # K/uL INR 1.62 Sodium (136-148) mmol/L Potassium (3.5-5.1) mmol/L Chloride (98-107) mmol/L Carbon Dioxide (21.0-32.0) mmol/L BUN (7.0-18.0) mg/dL Creatinine (0.8-1.3) mg/dL Est Cr Clr Drug Dosing mL/min Estimated GFR (MDRD) ml/min Glucose (74-106) mg/dL Calcium (8.5-10.1) mg/dL Phosphorus (2.6-4.7) mg/dL Magnesium (1.8-2.4) mg/dL Total Bilirubin (0.2-1.0) mg/dL AST (15-37) IU/L ALT (14-63) IU/L Alkaline Phosphatase (46-116) U/L Total Protein (6.4-8.2) g/dL Albumin (3.4-5.0) g/dL Globulin (2.6-4.0) g/dL Albumin/Globulin Ratio (0.9-1.6) Hepatitis A IgM Ab (Negative) Hep Bs Antigen (Negative) Hep B Core IgM Ab (Negative) Hepatitis C Antibody (0.0-0.9) s/co ratio Med Orders - Current: Current Medications Diltiazem HCl (Cardizem Cd) 240 mg PO DAILY [facility] Last Admin: 03/22/19 08:49 Dose: 240 mg Folic Acid (Folic Acid) 1 mg PO BEDTIME [facility] Last Admin: 03/22/19 22:00 Dose: 1 mg Sodium Chloride (Normal Saline) 1,000 mls @ 100 mls/hr IV ASDIRECTED [facility] Last Admin: 03/23/19 04:30 Dose: 100 mls/hr Magnesium Sulfate 4 gm/ Premix 100 mls @ 25 mls/hr IV ONETIME ONE Stop: 03/23/19 12:03 Lorazepam (Ativan) 0 mg IVPUSH Q4H PRN; Protocol PRN Reason: Withdrawal Symptoms Last Admin: 03/22/19 14:39 Dose: 1 mg Lorazepam (Ativan) 0 mg PO Q4H PRN; Protocol PRN Reason: Withdrawal Symptoms Nystatin (Nystatin Crm) 0 gm TOP QID PRN PRN Reason: Rash Pantoprazole Sodium (Protonix) 40 mg PO BEDTIME [facility] Last Admin: 03/22/19 22:00 Dose: 40 mg Potassium Chloride (Klor-Con M20) 40 meq PO ONETIME ONE Stop: 03/23/19 12:01 Potassium Chloride (Klor-Con M20) 40 meq PO ONETIME ONE Stop: 03/23/19 16:01 Sodium Phosphate (Neutra-Phos) 250 mg PO QID [facility] Last Admin: 03/23/19 06:13 Dose: 250 mg Thiamine HCl (Vitamin B-1) 100 mg PO BEDTIME [facility] Last Admin: 03/22/19 22:00 Dose: 100 mg Discontinued Medications Diltiazem HCl (Diltiazem) 20 mg IVPUSH ONETIME ONE Stop: 03/19/19 17:18 Last Admin: 03/19/19 17:30 Dose: 20 mg Diltiazem HCl (Diltiazem) 20 mg IVPUSH ONETIME ONE Stop: 03/19/19 17:43 Last Admin: 03/19/19 18:04 Dose: Not Given Diltiazem HCl (Diltiazem) 10 mg IVPUSH ONETIME ONE Stop: 03/19/19 18:05 Last Admin: 03/19/19 18:10 Dose: 10 mg Gadobenate Dimeglumine (Multihance) 20 ml IVPUSH ONETIME STA Stop: 03/21/19 16:11 Last Admin: 03/21/19 18:54 Dose: Not Given Sodium Chloride (Normal Saline) 1,000 mls @ 999 mls/hr IV .Bolus ONE Stop: 03/19/19 17:46 Last Admin: 03/19/19 17:03 Dose: 999 mls/hr Multivitamins/Minerals 10 ml/Thiamine HCl 100 mg/ Folic Acid 1 mg/ Sodium Chloride 1,011.2 mls @ 999 mls/hr IV ONETIME ONE Stop: 03/19/19 17:49 Last Admin: 03/19/19 17:12 Dose: 999 mls/hr Sodium Chloride (Normal Saline) 1,000 mls @ 150 mls/hr IV ASDIRECTED [facility] Last Admin: 03/21/19 01:25 Dose: 150 mls/hr Magnesium Sulfate 4 gm/ Premix 100 mls @ 25 mls/hr IV ONETIME ONE Stop: 03/19/19 23:16 Last Admin: 03/19/19 20:23 Dose: 25 mls/hr Magnesium Sulfate 2 gm/ Premix 50 mls @ 25 mls/hr IV ONETIME ONE Stop: 03/20/19 10:37 Last Admin: 03/20/19 09:16 Dose: 25 mls/hr Magnesium Sulfate 4 gm/ Premix 100 mls @ 25 mls/hr IV ONETIME ONE Stop: 03/21/19 12:01 Last Admin: 03/21/19 08:31 Dose: 25 mls/hr Magnesium Sulfate 4 gm/ Premix 100 mls @ 25 mls/hr IV ONETIME ONE Stop: 03/22/19 11:35 Last Admin: 03/22/19 08:46 Dose: 25 mls/hr Iopamidol (Isovue Multipack-370 (76%)) 50 ml IVPUSH ONETIME STA Stop: 03/19/19 19:33 Last Admin: 03/19/19 20:27 Dose: Not Given Iopamidol (Isovue Multipack-370 (76%)) 100 ml IVPUSH ONETIME STA Stop: 03/20/19 14:33 Last Admin: 03/20/19 14:43 Dose: 100 ml Pneumococcal Polyvalent Vaccine (Pneumovax 23) 0.5 ml IM .ONCE ONE Stop: 03/20/19 11:01 Last Admin: 03/20/19 11:06 Dose: 0.5 ml Pneumococcal Polyvalent Vaccine (Pneumovax 23) Confirm Administered Dose 0.5 ml .ROUTE .STK-MED ONE Stop: 03/20/19 11:00 Last Admin: 03/20/19 11:04 Dose: Not Given Potassium Chloride (Klor-Con M20) 40 meq PO ONETIME ONE Stop: 03/20/19 08:40 Last Admin: 03/20/19 09:22 Dose: 40 meq Potassium Chloride (Klor-Con M20) 40 meq PO ONETIME ONE Stop: 03/20/19 12:01 Last Admin: 03/20/19 12:04 Dose: 40 meq Potassium Chloride (Klor-Con M20) 40 meq PO ONETIME ONE Stop: 03/23/19 08:06 - Exam General: Alert, Oriented, Cooperative Lungs: Clear to Auscultation, Normal Respiratory Effort Cardiovascular: Regular Rate, Irregular Rhythm GI/Abdominal Exam: Normal Bowel Sounds, Soft, Non-Tender, Hepatomegaly Extremities: No Pedal Edema Skin: Warm, Dry, Other (jaundice) Neurological: No New Focal Deficit Psy/Mental Status: Alert, Normal Affect, Normal Mood - Problem List Review Problem List Initiated/Reviewed/Updated: Yes - My Orders Last 24 Hours: My Active Orders 03/22/19 08:06 Communication Order [RC] ROUTINE 03/22/19 10:42 Notify Provider Consults [RC] ASDIRECTED Consult to Physician [CONS] Routine 03/23/19 08:04 Magnesium Sulfate/Water [Magnesium Sulfate in Water Premix] 4 gm Premix Bag 1 bag IV ONETIME 03/23/19 12:00 Potassium Chloride [Klor-Con M20] 40 meq PO ONETIME ONE 03/23/19 16:00 Potassium Chloride [Klor-Con M20] 40 meq PO ONETIME ONE 03/24/19 05:11 INR,PT,PROTHROMBIN TIME [COAG] AM - Plan Plan:: 7. Afib with RVR- continue on cardizem 240 ER, still in Afib , rate contolled continue to monitor, no anticoagulation because patient is thrombocytopenic. CTA chest was completed to rule out PE. No PE but did show nodular liver consistent with cirrhosis, esophageal varices, and lung nodule. Troponins were trended and negative x 3. Echo pending. Echo showed EF og 60-65%, no regional wall motion abn, and moderate biatrial enlargement. Continue to monitor on telemetry 2. Elevated LFTs-Bilirubin improved from 6.6 to 5.3, hx of hyperbilirubinemia in 2013. MRCP limited due to patient not being able to stay still, did show multiple small gallstones, mild GB wall thickening and mild pericholecystic fluids but no CBD dilation. General surgery consulted and recommended outpatient HIDA scan, does not require surgical intervention at this time but if the need should arise he would need to be transferred to a higher level of care due to his comorbidities. Hep panel pending. RUQ US on 03/20 found a mass on the left side of his liver and gallstones with no wall thickness or common bile duct dilation. Radiology recommended follow up with CT. CTA abdomen was performed and found liver cirrhosis, 5x4.8 cm hepatoma, and prominent varicosities. Discussed mass with radiology and they stated it was hepatocellular carcinoma based on imaging. 3. Alcohol intoxication with impending withdrawal- CIWA/Ativan protocol, continue thiamine and folic acid. Last CIWAs were 4. Continue IVF at 100. Monitor magnesium and phosphorus daily. 4. Hypomagnesemia-replace with 4 g IV, recheck in AM 5. Hypophosphatemia- resolved 6. Hypokalemia- 40 mEq q 4 x 3 doses 6. Thrombocytopenia- stable, up from 71 to 89 7. Lung nodule- 8mm on right- follow up with repeat CT scan in 6-12 months. 8. Evidence of esophageal varices and liver cirrhosis on imaging- will need to follow with GI as outpatient 9. Hypothyroidism- repeat TSH as outpatient and start medication if deemed appropriate by PCP 10. Scrotal lesions- keep area dry and use barrier cream
[2019-03-23 12:37] LABS: BLOOD UREA NITROGEN,BUN 9 mg/dL (7.0-18.0); CARBON DIOXIDE,CO2 23.4 mmol/L (21.0-32.0); CHLORIDE,CL 108 mmol/L (98-107); GLUCOSE RANDOM 121 mg/dL (74-106); POTASSIUM,K 3.3 mmol/L (3.5-5.1); SODIUM,NA 141 mmol/L (136-148)
--- NOTE | 2019-03-23 13:26 | PCM.DCSUM1 ---
Discharge Summary - Hospital Course HPI Initial Comments: Admission Date: 03/19/19 Discharge Date:03/23/19 Admission Diagnosis: 1. Afib with RVR 2. Elevated LFTs 3. Alcohol intoxication 4. Thrombocytopenia Discharge Diagnosis: 1. Afib with RVR-rate controlled 2. Elevated LFTs- improving 3. Alcohol withdrawal 4. Hypomagnesemia-improved 5. Hypokalemia-improved 6. Hypophosphatemia- resolved 7. Thrombocytopenia- improved 8. Lung nodule 9. Elevated TSH 10.Evidence of esophageal varices, cirrhosis, and hepatocellular carcinoma on imaging Procedures: None Consults: None Hospital Course: The patient is a 64 year old male who was brought in by police for medical clearance after being arrested on suspicion of DUI. In the ER he was found to be in Afib with RVR with a HR of 236. Patient denies any fever/ chills, chest pain, heart palpitations, shortness of breath, abdominal pain, nausea/vomiting, diarrhea or black/bloody stools. Patient denies hx of Afib or other cardiac issues. Patient does drink daily. He drinks 3-4 beers and 1/2 pint of whiskey. Last drink was this morning, unsure what time. Patient had been sober for 5 years because he states "my body just couldn't handle it anymore". He started drinking again daily 6-7 months ago. He denies hx of withdrawal symptoms or withdrawal seizure. He denies history of hepatitis, cirrhosis, or gallbladder disease. In the ER workup showed no white count or anemia but was thrombocytopenic with platelet level of 84, an INR was within normal limits. He did have an elevated bilirubin of 6.1 and elevated AST of 132. ALT was within normal limits. Lipase was 345. TSH was elevated at 6. Alcohol level was 236. UDS and UA were pending. CXR showed no acute cardiopulmonary process. EKG showed Afib with RVR with rate of 184. In the ER he was given 2 doses of 20 mg IV diltiazem and one dose of 10 mg IV diltiazem. He was also given a banana bag and 1 L bolus of NS. He was admitted to the ICU as an inpatient. For his A. fib, he was started on Cardizem 240 mg ER. This controlled his heart rate throughout his admission. Further workup was done which included an echo which showed an EF of 60-65% and no wall motion abnormalities. His troponins were trended and were negative and a CTA was done to rule out PE. He was not anticoagulated due to his thrombocytopenia. He did have elevated LFTs and thrombocytopenia likely related to his liver disease. Ultrasound of his abdomen showed cirrhosis. This was followed up with a CTA of the abdomen/pelvis, which showed a 5 cm mass, likely hepatocellular carcinoma. His bilirubin did this spike over the course of his admission and a MRCP was ordered. The patient was unable to stay still, so the scan was limited. It did show gallstones, mild gallbaldder wall thickening and some mild pericholecystic fluid, but no common bile duct dilation. General surgery was consult and evaluated the patient but did not think his he had acute cholecystitis. He recommended outpatient HIDA scan. By day discharge, his LFTs were trending down and his thrombocytopenia was improving. For the patient 's alcohol use, he was detoxed with the CIWA/Ativan protocol. By day of discharge, she had a CIWA of 4 and was not requiring any Ativan. He was started on thiamine and folic acid. The patient did have several electrolyte abnormalities while admitted. He had a low magnesium, low phosphorus and low potassium. These were replaced and improved. The patient had multiple imaging studies and he was found to have a right 8 mm lung nodule which radiology recommended follow-up with a CT scan in 6-12 months. He had evidence of esophageal varices, liver cirrhosis and hepatocellular carcinoma. This will need to follow up as an outpatient with GI. He did have an elevated TSH with initial workup. This will need to be repeated as an outpatient. By day discharge, the patient stated he felt much better and wanted to go home. The patient was offered home health to help manage new medications and provide physical therapy but the patient declined. Disposition: Home Discharge Condition: vitals stable, tolerating oral diet, ambulating without difficulty, symptom improvement Discharge Instructions: regular diet as tolerated, avoid alcohol use, activity as tolerated, take medications as prescribed. Symptoms to report to physician include fever/chills, chest pain, racing heart rate,shortness of breath, abdominal pain, erythema, drainage/discharge, or not improving as expected. Discharge Medications: Diltiazem [Cardizem CD] 240 mg PO DAILY Folic Acid 1 mg PO BEDTIME Magnesium Oxide 400 mg PO BID Pantoprazole [ProTONIX] 40 mg PO BEDTIME Thiamine [Vitamin B-1] 100 mg PO BEDTIME Follow-up: 1. PCP- Dr. Goodwin 2. GI in [place] Diagnosis: Stroke: No - Discharge Data Discharge Date: 03/23/19 Discharge Disposition: Home, Self-Care 01 Condition: Fair - Referral to Home Health Primary Care Physician: PCP None - Patient Summary/Data Consults: Consultations 03/21/19 11:01 PT Evaluation and Treatment [CONS] Routine 03/22/19 10:42 Consult to Physician [CONS] Routine - Patient Instructions Diet: Heart Healthy Diet, No Alcoholic Beverages Activity: As Tolerated Showering/Bathing: May Shower Notify Provider of: Fever, Increased Pain, Swelling and Redness, Drainage, Nausea and/or Vomiting Other/Special Instructions: Additional symptoms include chest pain, elevated HR , shortness of breath, or abdominal pain. Avoid alcohol use. - Discharge Plan *PRESCRIPTION DRUG MONITORING PROGRAM REVIEWED*: No *COPY OF PRESCRIPTION DRUG MONITORING REPORT IN PATIENT ZENAIDA: No Prescriptions/Med Rec: Diltiazem [Cardizem CD] 240 mg PO DAILY 30 Days #30 cap.cd Folic Acid 1 mg PO BEDTIME 30 Days #30 tablet Magnesium Oxide 400 mg PO BID 7 Days #14 tablet Pantoprazole [ProTONIX] 40 mg PO BEDTIME 30 Days #30 tab.cr Thiamine [Vitamin B-1] 100 mg PO BEDTIME 30 Days #30 tablet Home Medications: Home Meds Diltiazem [Cardizem CD] 240 mg PO DAILY 30 Days #30 cap.cd 03/23/19 [Rx] Folic Acid 1 mg PO BEDTIME 30 Days #30 tablet 03/23/19 [Rx] Magnesium Oxide 400 mg PO BID 7 Days #14 tablet 03/23/19 [Rx] Pantoprazole [ProTONIX] 40 mg PO BEDTIME 30 Days #30 tab.cr 03/23/19 [Rx] Thiamine [Vitamin B-1] 100 mg PO BEDTIME 30 Days #30 tablet 03/23/19 [Rx] Patient Handouts: Alcohol Intoxication, [id number], Thiamine, Vitamin B1 tablets, Pantoprazole tablets, Diltiazem tablets, Magnesium Salts tablets, extended-release, Atrial Fibrillation, [id number], Folic Acid, Vitamin B9 tablets Referrals: [facility] [Outside] Salvador Goodwin MD [Physician] - 04/05/19 10:45 am (Please check in at 10:30. ) - Discharge Summary/Plan Comment DC Time >30 min.: No - Patient Data Vitals - Most Recent: Last Vital Signs Temp 98.6 F 03/23/19 09:00 Pulse 86 03/23/19 09:00 Resp 18 03/23/19 09:00 BP 121/81 03/23/19 09:00 Pulse Ox 93 L 03/23/19 09:00 Weight - Most Recent: 83.869 kg I&O - Last 24 hours: Intake & Output 03/22/19 03/23/19 03/23/19 22:59 06:59 14:59 Intake Total 1532 1862 360 Output Total 0 640 Balance 1532 1222 360 Lab Results - Last 24 hrs: Laboratory Results - last 24 hr 03/23/19 03/23/19 03/23/19 Range/Units 06:41 06:41 06:41 WBC 7.01 (4.0-11.0) K/uL RBC 3.76 L (4.50-5.90) M/uL Hgb 13.4 (13.0-17.0) g/dL Hct 38.5 (38.0-50.0) % MCV 102.4 H (80.0-98.0) fL MCH 35.6 H (27.0-32.0) pg MCHC 34.8 (31.0-37.0) g/dL RDW Std Deviation 69.3 H (28.0-62.0) fl RDW Coeff of Miriam 19 H (11.0-15.0) % Plt Count 89 L (150-400) K/uL Add Manual Diff YES Neutrophils % (Manual) 60 (48.0-80.0) % Band Neutrophils % 4 % Lymphocytes % (Manual) 28 (16.0-40.0) % Monocytes % (Manual) 7 (0.0-15.0) % Eosinophils % (Manual) 1 (0.0-7.0) % Nucleated RBC % 1.7 /100WBC Absolute Seg Neuts 4.2 (1.4-5.7) Band Neutrophils # 0.3 Lymphocytes # (Manual) 2.0 (0.6-2.4) Monocytes # (Manual) 0.5 (0.0-0.8) Eosinophils # (Manual) 0.1 (0.0-0.7) Nucleated RBCs # 0 K/uL INR 1.62 Sodium 144 (136-148) mmol/L Potassium 2.9 L (3.5-5.1) mmol/L Chloride 110 H (98-107) mmol/L Carbon Dioxide 23.2 (21.0-32.0) mmol/L BUN 8 (7.0-18.0) mg/dL Creatinine 1.0 (0.8-1.3) mg/dL Est Cr Clr Drug Dosing 76.04 mL/min Estimated GFR (MDRD) > 60.0 ml/min Glucose 129 H (74-106) mg/dL Calcium 7.5 L (8.5-10.1) mg/dL Phosphorus 2.8 (2.6-4.7) mg/dL Magnesium 1.3 L (1.8-2.4) mg/dL Total Bilirubin 5.3 H (0.2-1.0) mg/dL AST 94 H (15-37) IU/L ALT 26 (14-63) IU/L Alkaline Phosphatase 99 (46-116) U/L Total Protein 8.4 H (6.4-8.2) g/dL Albumin 1.6 L (3.4-5.0) g/dL Globulin 6.8 H (2.6-4.0) g/dL Albumin/Globulin Ratio 0.2 L (0.9-1.6) 03/23/19 Range/Units 12:05 WBC (4.0-11.0) K/uL RBC (4.50-5.90) M/uL Hgb (13.0-17.0) g/dL Hct (38.0-50.0) % MCV (80.0-98.0) fL MCH (27.0-32.0) pg MCHC (31.0-37.0) g/dL RDW Std Deviation (28.0-62.0) fl RDW Coeff of Miriam (11.0-15.0) % Plt Count (150-400) K/uL Add Manual Diff Neutrophils % (Manual) (48.0-80.0) % Band Neutrophils % % Lymphocytes % (Manual) (16.0-40.0) % Monocytes % (Manual) (0.0-15.0) % Eosinophils % (Manual) (0.0-7.0) % Nucleated RBC % /100WBC Absolute Seg Neuts (1.4-5.7) Band Neutrophils # Lymphocytes # (Manual) (0.6-2.4) Monocytes # (Manual) (0.0-0.8) Eosinophils # (Manual) (0.0-0.7) Nucleated RBCs # K/uL INR Sodium 141 (136-148) mmol/L Potassium 3.3 L (3.5-5.1) mmol/L Chloride 108 H (98-107) mmol/L Carbon Dioxide 23.4 (21.0-32.0) mmol/L BUN 9 (7.0-18.0) mg/dL Creatinine 1.1 (0.8-1.3) mg/dL Est Cr Clr Drug Dosing 69.13 mL/min Estimated GFR (MDRD) > 60.0 ml/min Glucose 121 H (74-106) mg/dL Calcium 7.7 L (8.5-10.1) mg/dL Phosphorus (2.6-4.7) mg/dL Magnesium (1.8-2.4) mg/dL Total Bilirubin (0.2-1.0) mg/dL AST (15-37) IU/L ALT (14-63) IU/L Alkaline Phosphatase (46-116) U/L Total Protein (6.4-8.2) g/dL Albumin (3.4-5.0) g/dL Globulin (2.6-4.0) g/dL Albumin/Globulin Ratio (0.9-1.6) Med Orders - Current: Current Medications Diltiazem HCl (Cardizem Cd) 240 mg PO DAILY JAIME Last Admin: 03/23/19 08:37 Dose: 240 mg Folic Acid (Folic Acid) 1 mg PO BEDTIME JAIME Last Admin: 03/22/19 22:00 Dose: 1 mg Sodium Chloride (Normal Saline) 1,000 mls @ 100 mls/hr IV ASDIRECTED JAIME Last Admin: 03/23/19 04:30 Dose: 100 mls/hr Lorazepam (Ativan) 0 mg IVPUSH Q4H PRN; Protocol PRN Reason: Withdrawal Symptoms Last Admin: 03/22/19 14:39 Dose: 1 mg Lorazepam (Ativan) 0 mg PO Q4H PRN; Protocol PRN Reason: Withdrawal Symptoms Nystatin (Nystatin Crm) 0 gm TOP QID PRN PRN Reason: Rash Pantoprazole Sodium (Protonix) 40 mg PO BEDTIME ON LICENSE OF [facility] Last Admin: 03/22/19 22:00 Dose: 40 mg Potassium Chloride (Klor-Con M20) 40 meq PO ONETIME ONE Stop: 03/23/19 16:01 Sodium Phosphate (Neutra-Phos) 250 mg PO QID ON LICENSE OF [facility] Last Admin: 03/23/19 13:02 Dose: 250 mg Thiamine HCl (Vitamin B-1) 100 mg PO BEDTIME ON LICENSE OF [facility] Last Admin: 03/22/19 22:00 Dose: 100 mg Discontinued Medications Diltiazem HCl (Diltiazem) 20 mg IVPUSH ONETIME ONE Stop: 03/19/19 17:18 Last Admin: 03/19/19 17:30 Dose: 20 mg Diltiazem HCl (Diltiazem) 20 mg IVPUSH ONETIME ONE Stop: 03/19/19 17:43 Last Admin: 03/19/19 18:04 Dose: Not Given Diltiazem HCl (Diltiazem) 10 mg IVPUSH ONETIME ONE Stop: 03/19/19 18:05 Last Admin: 03/19/19 18:10 Dose: 10 mg Gadobenate Dimeglumine (Multihance) 20 ml IVPUSH ONETIME STA Stop: 03/21/19 16:11 Last Admin: 03/21/19 18:54 Dose: Not Given Sodium Chloride (Normal Saline) 1,000 mls @ 999 mls/hr IV .Bolus ONE Stop: 03/19/19 17:46 Last Admin: 03/19/19 17:03 Dose: 999 mls/hr Multivitamins/Minerals 10 ml/Thiamine HCl 100 mg/ Folic Acid 1 mg/ Sodium Chloride 1,011.2 mls @ 999 mls/hr IV ONETIME ONE Stop: 03/19/19 17:49 Last Admin: 03/19/19 17:12 Dose: 999 mls/hr Sodium Chloride (Normal Saline) 1,000 mls @ 150 mls/hr IV ASDIRECTED ON LICENSE OF [facility] Last Admin: 03/21/19 01:25 Dose: 150 mls/hr Magnesium Sulfate 4 gm/ Premix 100 mls @ 25 mls/hr IV ONETIME ONE Stop: 03/19/19 23:16 Last Admin: 03/19/19 20:23 Dose: 25 mls/hr Magnesium Sulfate 2 gm/ Premix 50 mls @ 25 mls/hr IV ONETIME ONE Stop: 03/20/19 10:37 Last Admin: 03/20/19 09:16 Dose: 25 mls/hr Magnesium Sulfate 4 gm/ Premix 100 mls @ 25 mls/hr IV ONETIME ONE Stop: 03/21/19 12:01 Last Admin: 03/21/19 08:31 Dose: 25 mls/hr Magnesium Sulfate 4 gm/ Premix 100 mls @ 25 mls/hr IV ONETIME ONE Stop: 03/22/19 11:35 Last Admin: 03/22/19 08:46 Dose: 25 mls/hr Magnesium Sulfate 4 gm/ Premix 100 mls @ 25 mls/hr IV ONETIME ONE Stop: 03/23/19 12:03 Last Admin: 03/23/19 08:39 Dose: 25 mls/hr Iopamidol (Isovue Multipack-370 (76%)) 50 ml IVPUSH ONETIME STA Stop: 03/19/19 19:33 Last Admin: 03/19/19 20:27 Dose: Not Given Iopamidol (Isovue Multipack-370 (76%)) 100 ml IVPUSH ONETIME STA Stop: 03/20/19 14:33 Last Admin: 03/20/19 14:43 Dose: 100 ml Pneumococcal Polyvalent Vaccine (Pneumovax 23) 0.5 ml IM .ONCE ONE Stop: 03/20/19 11:01 Last Admin: 03/20/19 11:06 Dose: 0.5 ml Pneumococcal Polyvalent Vaccine (Pneumovax 23) Confirm Administered Dose 0.5 ml .ROUTE .STK-MED ONE Stop: 03/20/19 11:00 Last Admin: 03/20/19 11:04 Dose: Not Given Potassium Chloride (Klor-Con M20) 40 meq PO ONETIME ONE Stop: 03/20/19 08:40 Last Admin: 03/20/19 09:22 Dose: 40 meq Potassium Chloride (Klor-Con M20) 40 meq PO ONETIME ONE Stop: 03/20/19 12:01 Last Admin: 03/20/19 12:04 Dose: 40 meq Potassium Chloride (Klor-Con M20) 40 meq PO ONETIME ONE Stop: 03/23/19 08:06 Last Admin: 03/23/19 08:37 Dose: 40 meq Potassium Chloride (Klor-Con M20) 40 meq PO ONETIME ONE Stop: 03/23/19 12:01 Potassium Chloride (Klor-Con M20) 40 meq PO ONETIME ONE Stop: 03/23/19 10:34 Last Admin: 03/23/19 10:45 Dose: 40 meq
== END 2019-03-23 15:55 | disposition home or self-care (01) | DRG 897 ==
LOC: MW.ED 16:43 → MW.ICU 18:09 → MW.MS 03-21 17:18
PROVIDERS: ADMIT Internal Medicine; ATTEND Internal Medicine
PROC: HZ2ZZZZ Detoxification Services for Substance Abuse Treatment (ICD-10-PCS; principal; 2019-03-22)
DX: F10.229 Alcohol dependence with intoxication, unspecified (principal); E03.9 Hypothyroidism, unspecified; F10.129 Alcohol abuse with intoxication, unspecified; C22.0 Liver cell carcinoma; I85.10 Secondary esophageal varices without bleeding; F10.239 Alcohol dependence with withdrawal, unspecified; I48.91 Unspecified atrial fibrillation; E83.42 Hypomagnesemia; K74.60 Unspecified cirrhosis of liver; E87.6 Hypokalemia; D69.6 Thrombocytopenia, unspecified; K80.20 Calculus of gallbladder without cholecystitis without obstruction; E83.39 Other disorders of phosphorus metabolism; N50.89 Other specified disorders of the male genital organs; R91.1 Solitary pulmonary nodule; R94.6 Abnormal results of thyroid function studies; Y90.7 Blood alcohol level of 200-239 mg/100 ml; M54.9 Dorsalgia, unspecified; G89.29 Other chronic pain; Z90.81 Acquired absence of spleen; Z87.891 Personal history of nicotine dependence; Z23 Encounter for immunization; R79.89 Other specified abnormal findings of blood chemistry
CPT/HCPCS: 71045; 80053; 82247; 82248; 83690; 83735; 84100; 84443; 84484; 85025; 85610; 93005 ×2; 96365; 96375; 99285; G0480 ×2; J3411; J3490; J7040 ×2; 36415; 71275; 71275-26; 74175; 74175-26; 74181; 74181-26; 76705; 76705-26; 80048; 80074; 80305-QW; 81001; 83605; 87086; 90732; 93306; 96376; 97161-GP; 97530-GP; A9270-GY; J2060; J3475; Q9967

== ENCOUNTER 2020-01-19 10:24 | Emergency (ER) | payer MEDICARE, MEDICAID ==
--- NOTE | 2020-01-19 10:49 | EDM.PDOC ---
ED HPI GENERAL MEDICAL PROBLEM - General Chief Complaint: General Stated Complaint: MEDICAL CLEARANCE FOR TRANSPORT Time Seen by Provider: 01/19/20 10:40 - History of Present Illness INITIAL COMMENTS - FREE TEXT/NARRATIVE: History of present illness: 64-year-old male brought by police for medical clearance prior to involuntary commitment due to patient's inability to care for self. Apparently the patient is an alcoholic. Adult Protective Services were called as his daughter was concerned that the patient was unable to care for himself. When police arrived the patient's home was in disarray and therefore the patient had a court order placed for detoxification and involuntary placement/admission. Review of systems: As per history of present illness and below otherwise all systems reviewed and negative. Past medical history: As per history of present illness and as reviewed below otherwise noncontributory. Atrial fibrillation, alcoholism Surgical history: As per history of present illness and as reviewed below otherwise noncontributory. Social history: Alcohol abuse Family history: As per history of present illness and as reviewed below otherwise noncontributory. Physical exam: GEN: no acute distress, appears chronically ill and somewhat unkempt HEENT: Atraumatic, normocephalic, mucous membranes moist, eyes mildly icteric Neck: supple, nontender, trachea midline. Lungs: No respiratory distress. Heart: Mildly tachycardic, rate 110 Abdominal: Nontender, nondistended Back: nontender Extremities: Atraumatic. Neurovascularly intact. Mildly tremorous in upper extremities Neuro: Awake, alert, oriented to date though seems somewhat confused about reason for being here and ability to care for self. Neuro Exam nonfocal. Psych: Denies depression or suicidal ideation. Denies anxiety or homicidal i deation. Skin: warm, dry, no lesions, coloration appears jaundiced Diagnostics: Labs, EKG Therapeutics: P.o. and IV Ativan MDM: Impression: [] Plan: [] Definitive disposition and diagnosis as appropriate pending reevaluation and review of above. - Related Data Allergies Allergy/AdvReac Type Severity Reaction Status Date / Time No Known Allergies Allergy Verified 01/19/20 11:03 Home Meds: Home Meds Diltiazem [Cardizem CD] 240 mg PO DAILY 01/19/20 [History] Magnesium Oxide 400 mg PO DAILY 01/19/20 [History] Multivitamin [Multi-Vitamin Daily] 1 each PO DAILY 01/19/20 [History] Thiamine HCl [B-1] 100 mg PO DAILY 01/19/20 [History] Past Medical History - Past Health History Medical/Surgical History: Denies Medical/Surgical History HEENT History: Reports: Other (See Below) Other HEENT History: wears bifocal glasses Cardiovascular History: Reports: None Respiratory History: Reports: None Gastrointestinal History: Reports: None Genitourinary History: Reports: None Musculoskeletal History: Reports: Back Pain, Chronic, Fracture Other Musculoskeletal History: rib fracture sustained after a fall Neurological History: Reports: None Psychiatric History: Reports: Depression Endocrine/Metabolic History: Reports: None - Infectious Disease History Infectious Disease History: Reports: None - Past Surgical History Head Surgeries/Procedures: Reports: Craniotomy Cardiovascular Surgical History: Reports: None Other GI Surgeries/Procedures: splenectomy Neurological Surgical History: Reports: Other (See Below) Other Neurological Surgeries/Procedures: brain surgery after a fall Musculoskeletal Surgical History: Reports: Other (See Below) Other Musculoskeletal Surgeries/Procedures:: back surgery Social & Family History - Family History Family Medical History: Noncontributory - Caffeine Use Caffeine Use: Reports: Other Other Caffeine Use: gatorade ED ROS GENERAL - Review of Systems Review Of Systems: See Below (See HPI) ED EXAM, GENERAL - Physical Exam Exam: See Below (See HPI) Course - Vital Signs Text/Narrative:: Patient brought for medical clearance prior to involuntary hold/court ordered detox. Patient not actively suicidal. Does appear to be actively withdrawing from alcohol. Ativan given with improvement in his symptoms. He also did miss his morning medications including diltiazem and this was given as well. Heart rate and blood pressure which were both initially elevated have improved. Labs did come back abnormal with hypomagnesemia, hyperbilirubinemia, abnormal LFTs, hypocalcemia and an elevated TSH. Free T4 not elevated. Ultrasound of the right upper quadrant was performed which shows liver disease and liver mass which has enlarged since prior CT scan in June 2019. Subsequent doses of Ativan were needed as the patient continued to have intermittent alcohol withdrawal symptoms. Had reported initially no alcohol in the last week, however given multiple recurrences of withdrawal type symptoms while here in the emergency department, suspect more regular use. Patient will require multiple specialty consultation, evaluation and work-up modalities for the liver mass/liver failure and alcohol detoxification treatment which cannot be performed here. Therefore I have discussed this case with the ER physician and oncologist at [facility], who accept the case. Last Recorded V/S: Last Vital Signs Temp 96.4 F L 01/19/20 10:45 Pulse 70 01/19/20 18:24 Resp 16 01/19/20 18:24 BP 110/69 01/19/20 18:24 Pulse Ox 95 01/19/20 18:24 - Orders/Labs/Meds Orders: Active Orders 24 hr Category Date Time Status EKG Documentation Completion [RC] STAT Care 01/19/20 10:41 Active Labs: Laboratory Tests 01/19/20 01/19/20 01/19/20 Range/Units 10:57 10:57 10:57 WBC 7.27 (4.0-11.0) K/uL RBC 3.87 L (4.50-5.90) M/uL Hgb 14.1 (13.0-17.0) g/dL Hct 39.2 (38.0-50.0) % MCV 101.3 H (80.0-98.0) fL MCH 36.4 H (27.0-32.0) pg MCHC 36.0 (31.0-37.0) g/dL RDW Std Deviation 66.1 H (28.0-62.0) fl RDW Coeff of Miriam 18 H (11.0-15.0) % Plt Count 71 L (150-400) K/uL MPV 13.20 H (7.40-12.00) fL Neut % (Auto) 58.8 (48.0-80.0) % Lymph % (Auto) 24.9 (16.0-40.0) % Cameron % (Auto) 15.4 H (0.0-15.0) % Eos % (Auto) 0.3 (0.0-7.0) % Baso % (Auto) 0.6 (0.0-1.5) % Neut # (Auto) 4.3 (1.4-5.7) K/uL Lymph # (Auto) 1.8 (0.6-2.4) K/uL Cameron # (Auto) 1.1 H (0.0-0.8) K/uL Eos # (Auto) 0.0 (0.0-0.7) K/uL Baso # (Auto) 0.0 (0.0-0.1) K/uL Nucleated RBC % 0.8 /100WBC Nucleated RBCs # 0 K/uL Sodium 137 (136-148) mmol/L Potassium 3.2 L (3.5-5.1) mmol/L Chloride 101 (98-107) mmol/L Carbon Dioxide 26.0 (21.0-32.0) mmol/L BUN 11 (7.0-18.0) mg/dL Creatinine 1.1 (0.8-1.3) mg/dL Est Cr Clr Drug Dosing 69.13 mL/min Estimated GFR (MDRD) > 60.0 ml/min Glucose 97 (74-106) mg/dL Calcium 8.0 L (8.5-10.1) mg/dL Magnesium 0.8 L (1.8-2.4) mg/dL Total Bilirubin 9.2 H (0.2-1.0) mg/dL AST 97 H (15-37) IU/L ALT 25 (14-63) IU/L Alkaline Phosphatase 148 H (46-116) U/L Ammonia (19-54) ug/dL Total Protein 10.6 H (6.4-8.2) g/dL Albumin 2.1 L (3.4-5.0) g/dL Globulin 8.5 H (2.6-4.0) g/dL Albumin/Globulin Ratio 0.3 L (0.9-1.6) Free T4 1.43 (0.76-1.46) ng/dL TSH 3rd Generation 6.72 H (0.36-3.74) uIU/mL Urine Color Urine Appearance Urine pH (5.0-8.0) Ur Specific Tatum (1.001-1.035) Urine Protein (NEGATIVE) mg/dL Urine Glucose (UA) (NEGATIVE) mg/dL Urine Ketones (NEGATIVE) mg/dL Urine Occult Blood (NEGATIVE) Urine Nitrite (NEGATIVE) Urine Bilirubin (NEGATIVE) Urine Ictotest Urine Urobilinogen (<2.0) EU/dL Ur Leukocyte Esterase (NEGATIVE) Urine RBC (0-2/HPF) Urine WBC (0-5/HPF) Ur Epithelial Cells (NONE-FEW) Urine Bacteria (NEGATIVE) Salicylates <0.2 (0-20) mg/dL Urine Opiates Screen (NEGATIVE) Ur Oxycodone Screen (NEGATIVE) Urine Methadone Screen (NEGATIVE) Acetaminophen <2.0 ug/mL Ur Barbiturates Screen (NEGATIVE) Ur Phencyclidine Scrn (NEGATIVE) Ur Amphetamine Screen (NEGATIVE) U Methamphetamines Scrn (NEGATIVE) U Benzodiazepines Scrn (NEGATIVE) U Cocaine Metab Screen (NEGATIVE) U Marijuana (THC) Screen (NEGATIVE) Ethyl Alcohol < 3.0 mg/dL 01/19/20 01/19/20 01/19/20 Range/Units 14:24 14:24 16:44 WBC (4.0-11.0) K/uL RBC (4.50-5.90) M/uL Hgb (13.0-17.0) g/dL Hct (38.0-50.0) % MCV (80.0-98.0) fL MCH (27.0-32.0) pg MCHC (31.0-37.0) g/dL RDW Std Deviation (28.0-62.0) fl RDW Coeff of Miriam (11.0-15.0) % Plt Count (150-400) K/uL MPV (7.40-12.00) fL Neut % (Auto) (48.0-80.0) % Lymph % (Auto) (16.0-40.0) % Cameron % (Auto) (0.0-15.0) % Eos % (Auto) (0.0-7.0) % Baso % (Auto) (0.0-1.5) % Neut # (Auto) (1.4-5.7) K/uL Lymph # (Auto) (0.6-2.4) K/uL Cameron # (Auto) (0.0-0.8) K/uL Eos # (Auto) (0.0-0.7) K/uL Baso # (Auto) (0.0-0.1) K/uL Nucleated RBC % /100WBC Nucleated RBCs # K/uL Sodium (136-148) mmol/L Potassium (3.5-5.1) mmol/L Chloride (98-107) mmol/L Carbon Dioxide (21.0-32.0) mmol/L BUN (7.0-18.0) mg/dL Creatinine (0.8-1.3) mg/dL Est Cr Clr Drug Dosing mL/min Estimated GFR (MDRD) ml/min Glucose (74-106) mg/dL Calcium (8.5-10.1) mg/dL Magnesium (1.8-2.4) mg/dL Total Bilirubin (0.2-1.0) mg/dL AST (15-37) IU/L ALT (14-63) IU/L Alkaline Phosphatase (46-116) U/L Ammonia <17 L (19-54) ug/dL Total Protein (6.4-8.2) g/dL Albumin (3.4-5.0) g/dL Globulin (2.6-4.0) g/dL Albumin/Globulin Ratio (0.9-1.6) Free T4 (0.76-1.46) ng/dL TSH 3rd Generation (0.36-3.74) uIU/mL Urine Color DARK YELLOW Urine Appearance CLEAR Urine pH 7.0 (5.0-8.0) Ur Specific Tatum 1.010 (1.001-1.035) Urine Protein NEGATIVE (NEGATIVE) mg/dL Urine Glucose (UA) NEGATIVE (NEGATIVE) mg/dL Urine Ketones NEGATIVE (NEGATIVE) mg/dL Urine Occult Blood MODERATE H (NEGATIVE) Urine Nitrite NEGATIVE (NEGATIVE) Urine Bilirubin MODERATE H (NEGATIVE) Urine Ictotest POSITIVE Urine Urobilinogen >=8.0 H (<2.0) EU/dL Ur Leukocyte Esterase TRACE H (NEGATIVE) Urine RBC 4-8 (0-2/HPF) Urine WBC 0-3 (0-5/HPF) Ur Epithelial Cells RARE (NONE-FEW) Urine Bacteria FEW (NEGATIVE) Salicylates (0-20) mg/dL Urine Opiates Screen NEGATIVE (NEGATIVE) Ur Oxycodone Screen NEGATIVE (NEGATIVE) Urine Methadone Screen NEGATIVE (NEGATIVE) Acetaminophen ug/mL Ur Barbiturates Screen NEGATIVE (NEGATIVE) Ur Phencyclidine Scrn NEGATIVE (NEGATIVE) Ur Amphetamine Screen NEGATIVE (NEGATIVE) U Methamphetamines Scrn NEGATIVE (NEGATIVE) U Benzodiazepines Scrn NEGATIVE (NEGATIVE) U Cocaine Metab Screen NEGATIVE (NEGATIVE) U Marijuana (THC) Screen NEGATIVE (NEGATIVE) Ethyl Alcohol mg/dL Meds: Medications Discontinued Medications Generic Name Dose Route Start Last Admin Trade Name Freq PRN Reason Stop Dose Admin Magnesium Sulfate 2 gm/ Premix 50 mls @ 50 mls/hr 01/19/20 14:15 01/19/20 14:53 IV 01/19/20 15:14 50 mls/hr ONETIME ONE Administration Sodium Chloride 1,000 mls @ 999 mls/hr 01/19/20 14:39 01/19/20 14:45 Normal Saline IV 01/19/20 15:39 999 mls/hr .Bolus ONE Administration Lorazepam 1 mg 01/19/20 10:54 01/19/20 11:42 Ativan PO 01/19/20 10:55 1 mg ONETIME ONE Administration Lorazepam 1 mg 01/19/20 14:39 01/19/20 14:53 Ativan IVPUSH 01/19/20 14:40 1 mg ONETIME ONE Administration Lorazepam Confirm 01/19/20 20:11 01/19/20 21:00 Ativan Administered 01/19/20 20:12 Not Given Dose 2 mg .ROUTE .STK-MED ONE Lorazepam 1 mg 01/19/20 21:00 01/19/20 20:11 Ativan IVPUSH 01/19/20 21:01 1 mg ONETIME ONE Administration Magnesium Sulfate 2 gm 01/19/20 14:10 Magnesium Sulfate 50% IV 01/19/20 14:11 ONETIME ONE - Re-Assessments/Exams Free Text/Narrative Re-Assessment/Exam: 01/19/20 17:51 Spoke to ER physician at [facility]. Dr Lainez accepts the case. ER to ER transfer. Departure - Departure Time of Disposition: 18:07 Disposition: DC/Tfer to [facility] ([facility]3] Hospital 02 Clinical Impression: Liver mass, Hypomagnesemia, Hyperbilirubinemia Alcohol withdrawal Qualifiers: Complication of substance-induced condition: uncomplicated Qualified Code(s): F10.230 - Alcohol dependence with withdrawal, uncomplicated - Discharge Information Referrals: PCP,None [Primary Care Provider] - Forms: ED Department Discharge - My Orders Last 24 Hours: My Active Orders 01/19/20 10:41 EKG Documentation Completion [RC] STAT - Assessment/Plan Last 24 Hours: My Active Orders 01/19/20 10:41 EKG Documentation Completion [RC] STAT
[2020-01-19] MEDS ORDERED: LORazepam 1 MG Tab PO ONE (10:54)
[2020-01-19 11:25] LABS: ACETAMINOPHEN <2.0 ug/mL
[2020-01-19 11:38] LABS: BLOOD UREA NITROGEN,BUN 11 mg/dL (7.0-18.0); CHLORIDE,CL 101 mmol/L (98-107); GLUCOSE RANDOM 97 mg/dL (74-106); POTASSIUM,K 3.2 mmol/L (3.5-5.1); SODIUM,NA 137 mmol/L (136-148)
[2020-01-19] MEDS ORDERED: Magnesium Sulfate (4.06 MEQ/ML) 5 GM/10 ML SDV IV ONE (14:10)
[2020-01-19] MEDS ORDERED: Magnesium Sulfate/Water 2 GM in Premix Bag 1 BAG IV ONE (14:15)
[2020-01-19] MEDS ORDERED: LORazepam 2 MG/ML SDV IVPUSH ONE ×2 (14:39→21:00)
[2020-01-19] MEDS ORDERED: Sodium Chloride 0.9% 1,000 ML IV ONE (14:39)
--- NOTE | 2020-01-19 17:19 | US ---
Right upper limited abdominal ultrasound: Multiple real-time images of the right upper abdomen were obtained. Comparison: Prior CT abdomen exam of 06/20/19. Findings: Mass is noted within the left side of the liver measuring 7.3 x 5.2 cm. This appears increased in size from previous CT exam. Aorta shows no aneurysm. Liver is echogenic which most likely is due to fatty infiltration as well as change from cirrhosis. Gallstones are seen within the gallbladder. No gallbladder wall thickening is seen. Common bile duct measures 6 mm which is at the upper limits of normal. Right kidney shows no hydronephrosis or mass and has a length of 12.6 cm. Pancreas shows no discrete abnormality. Impression: 1. Increasing size of mass within the left lobe of the liver. 2. Fatty infiltration within the liver as well as cirrhotic change. 3. Cholelithiasis with no gallbladder wall thickening or biliary duct dilatation. Diagnostic code #9 This report was dictated in MDT
[2020-01-19] MEDS ORDERED: LORazepam 2 MG/ML SDV ONE (20:11)
== END 2020-01-19 20:30 ==
LOC: MW.ED 10:24
DX: F10.230 Alcohol dependence with withdrawal, uncomplicated (principal); R16.0 Hepatomegaly, not elsewhere classified; E83.42 Hypomagnesemia; E80.6 Other disorders of bilirubin metabolism; Z79.899 Other long term (current) drug therapy; Y90.0 Blood alcohol level of less than 20 mg/100 ml
CPT/HCPCS: 36415; 76705; 80053; 80305; 80307; 81001; 82140; 83735; 84439; 84443; 85025; 93005; 96365; 96375; 96376; 99285; A9270; J2060; J3475; J7030; 93010; 99284